=== PATIENT | female | born 1930 | race Caucasian/White ===

== ENCOUNTER → 2016-07-15 | Outpatient (CLI) | payer MEDICARE | LOC: YCHH 09:56 | PROVIDERS: ATTEND Family Medicine | DX: I10 Essential (primary) hypertension (principal); M16.11 Unilateral primary osteoarthritis, right hip ==

== ENCOUNTER → 2016-12-23 | Outpatient (CLI) | payer MEDICARE | END | disposition home or self-care (01) | LOC: YCHH 09:19 | PROVIDERS: ATTEND Family Medicine | DX: D64.9 Anemia, unspecified (principal); I10 Essential (primary) hypertension ==

== ENCOUNTER → 2017-03-14 | Outpatient (CLI) | payer MEDICARE | END | disposition home or self-care (01) | LOC: YCHH 13:44 | PROVIDERS: ATTEND Family Medicine | DX: R39.15 Urgency of urination (principal); I10 Essential (primary) hypertension; E03.9 Hypothyroidism, unspecified; D64.9 Anemia, unspecified; R30.0 Dysuria; D50.8 Other iron deficiency anemias ==

== ENCOUNTER → 2017-03-15 | Outpatient (CLI) | payer MEDICARE | END | disposition home or self-care (01) | LOC: GMAB 17:40 | PROVIDERS: ATTEND Family Medicine | DX: G30.9 Alzheimer's disease, unspecified (principal) ==

== ENCOUNTER → 2017-03-18 | Outpatient (CLI) | payer MEDICARE | END | disposition home or self-care (01) | LOC: YCHH 09:27 | PROVIDERS: ATTEND Family Medicine | DX: R06.02 Shortness of breath (principal); I10 Essential (primary) hypertension ==

== ENCOUNTER → 2017-03-21 | Outpatient (CLI) | payer MEDICARE ==
--- NOTE | 2017-03-21 23:53 | MRI ---
EXAM DATE: 03/21/2017 12:00 AM CDT. PROCEDURE: MR BRAIN WITHOUT IV CONTRAST. INDICATION: ALZHEIMERS DISEASE. COMPARISON: MRI brain 10/08/2014. TECHNIQUE: Multiplanar multisequence images of the brain were acquired without the administration of intravenous contrast. FINDINGS: No acute infarct or intracranial hemorrhage. No mass, mass effect, or midline shift. Scattered periventricular and deep white matter T2/FLAIR hyperintensities, not significantly changed from the 2015 exam compatible with chronic microvascular angiopathy. There is moderate diffuse brain volume loss with widening of the sylvian fissure and some disproportionate involvement of the temporal lobes. The hippocampi do not appear disproportionately affected. No hydrocephalus. Internal carotid and vertebrobasilar flow voids are identified. Prior left lens replacement. Unremarkable paranasal sinuses, mastoid air cells, and calvarium. IMPRESSION: Prominence of the sylvian fissure with slightly asymmetric volume loss involving the temporal lobes which may be seen with Alzheimer's disease in the correct clinical context. Findings are not significantly changed from the 2015 exam. Mild small vessel ischemic disease with moderate generalized brain volume loss. Electronically signed by: Herbert Ortega MD 03/21/2017 11:51 PM CDT
== END | disposition home or self-care (01) ==
LOC: MRI 12:58
PROVIDERS: ATTEND Family Medicine
DX: I67.82 Cerebral ischemia (principal); G30.9 Alzheimer's disease, unspecified

== ENCOUNTER 2017-03-23 09:12 | Emergency (ER) | payer MEDICARE ==
[2017-03-23 09:29] VITALS: TEMP 95.5
[2017-03-23] MEDS: SODIUM CHLORIDE 0.9% 1000ML 500 ML IVS ONE (09:39)
[2017-03-23] MEDS: ONDANSETRON ODT 8 MG TAB SL ONE (09:39)
--- NOTE | 2017-03-23 10:01 | RAD ---
EXAM DESCRIPTION: Abdomen Series CLINICAL HISTORY: 87 years Female, n/v COMPARISON: January 28, 2015 FINDINGS: The heart is at the upper limits of normal size, stable. Mural calcifications are noted in the aortic arch. There is subsegmental atelectasis or scarring the left lung base. No airspace consolidation or pleural effusion is seen. There is an old nonunited distal left clavicular fracture. There is an old healed or healing right-sided rib fracture. No free subdiaphragmatic gas or intra-abdominal air-fluid level. Nonobstructive bowel gas pattern. No suspicious intraductal calcification or mass. [id number] degenerative changes at multiple levels in the lower thoracic and lumbar spine. Postoperative changes in both hips are only partially included. IMPRESSION: Borderline cardiomegaly, but no obstruction or other acute intra-abdominal abnormality. Electronically signed by: Arthur Daniel MD 03/23/2017 10:00 AM CDT Workstation: [id number]
[2017-03-23] MEDS ORDERED: MAGNESIUM SULFATE PREMIX 2GM 50 ML IVPB ONE (10:35)
[2017-03-23] MEDS: MAGNESIUM SULFATE PREMIX 2GM 2 GM in PREMIX BAG 1 BAG IVPB ONE (10:35)
[2017-03-23] MEDS: ALUMINUM & MAGNESIUM HYDROXIDE 30 ML UD PO ONE (10:47)
[2017-03-23 13:53] VITALS: O2SAT 94
--- NOTE | 2017-03-23 14:11 | ED.PDOC ---
History of Present Illness - General Chief Complaint: GI Problem Stated Complaint: vomiting,weakness Time Seen by Provider: 03/23/17 09:23 Source: patient Exam Limitations: no limitations - History of Present Illness Initial Comments: the patient is an 87-year-old female presenting to the emergency room secondary to symptoms of generalized weakness along with nausea and vomiting. The patient started a fentanyl patch yesterday for the first time and within 4 hours was having some nausea and vomiting. Home health remove the patch this morning. She is started feeling better since the patches been removed. No fevers chills. No diarrhea. No syncope. No blood or bile in the vomitus. The patient has some advancing dementia and her family has been taking care of her she also has some chronic back pain as the reason she was taking the fentanyl. According to her family she has not been on any significant opiates in the past. Timing/Duration: unsure Severity: moderate Improving Factors: nothing Worsening Factors: medication Associated Symptoms: malaise, nausea/vomiting, weakness Allergies/Adverse Reactions: Allergies Sulfa Antibiotics Allergy (Verified 03/23/17 09:29) Home Medications: Ambulatory Orders Amlodipine Besylate [Norvasc] 10 mg PO DAILY 01/28/15 Atorvastatin Calcium [Lipitor] 10 mg PO BEDTIME 01/28/15 Hydrochlorothiazide 37.5 mg PO DAILY 01/28/15 Metoprolol Succinate [Toprol Xl] 100 mg PO DAILY 01/28/15 cloNIDine HCL [Catapres] 0.1 mg PO BID 01/28/15 Potassium Chloride [K-Tab] 10 meq PO QAM #60 tab 07/21/15 Aspirin [Enteric Coated Aspirin] 81 mg PO QAM 03/23/17 Baclofen 10 mg PO BEDTIME 03/23/17 Calcium 1,200 mg PO DAILY 03/23/17 Clonazepam 0.5 mg PO BEDTIME 03/23/17 Coenzyme Q10 (Ubidecarenone) [Coenzyme Q10] 100 mg PO DAILY 03/23/17 Cyanocobalamin [Vitamin B-12] 1,000 mcg PO DAILY 03/23/17 Diphenhydramine-Acetaminophen [Tylenol Pm Extra Strength 500-25 mg] 1 - 2 tab PO BEDTIME PRN 03/23/17 Lidocaine 5% Patch [Lidoderm Patch] 1 ea TOP BEDTIME 03/23/17 Multiple Vitamin [Multi Vitamin] 1 tab PO DAILY 03/23/17 Review of Systems - Review of Systems Constitutional: States: malaise, weakness EENTM: States: no symptoms reported Respiratory: States: no symptoms reported Cardiology: States: no symptoms reported Gastrointestinal/Abdominal: States: nausea, vomiting Genitourinary: States: no symptoms reported Musculoskeletal: States: no symptoms reported Skin: States: no symptoms reported Neurological: States: no symptoms reported - chronic advancing dementia Endocrine: States: no symptoms reported All other Systems: No Change from Baseline Past Medical History (General) - Patient Medical History Hx Seizures: No Hx Stroke: No Hx Dementia: No Hx Asthma: No Hx of COPD: Yes Hx Cardiac Disorders: Yes Hx Congestive Heart Failure: No Hx Pacemaker: No Hx Hypertension: Yes Hx Thyroid Disease: No Hx Diabetes: No Hx Gastroesophageal Reflux: No Hx Renal Disease: No Hx Cancer: No Hx of HIV: No Hx Hepatitis C: No Hx MRSA: No - Vaccination History Hx Tetanus, Diphtheria Vaccination: Yes - 01/27/15 Hx Influenza Vaccination: No Hx Pneumococcal Vaccination: Yes - Social History Hx Tobacco Use: No Hx Chewing Tobacco Use: No Hx Alcohol Use: No Hx Substance Use: No Hx Substance Use Treatment: No Hx Depression: No Hx Physical Abuse: No Hx Emotional Abuse: No Hx Suspected Abuse: No Family Medical History - Family History Mother Living Status: Hx Cardiac Disease: Yes Hx Family;Other: [place] Physical Exam - Physical Exam General Appearance: Alert, Comfortable Eye Exam: bilateral normal Ears, Nose, Throat: normal ENT inspection, normal pharynx, other - hearing is mildly decreased bilaterally Neck: full range of motion, supple Respiratory: chest non-tender, lungs clear, normal breath sounds, no respiratory distress, no accessory muscle use Cardiovascular/Chest: normal peripheral pulses, no edema, other - regular rate Peripheral Pulses: radial,right: 2+, radial,left: 2+, dorsalis pedis,right: 2+, dorsalis pedis,left: 2+ Gastrointestinal/Abdominal: non tender, soft Rectal Exam: deferred Back Exam: normal inspection, no CVA tenderness, no vertebral tenderness Extremity: normal range of motion, non-tender, normal inspection, no pedal edema , normal capillary refill Neurologic: partner II-XII nml as tested, alert, normal mood/affect, oriented x 3 Skin Exam: normal color Comments: Vital Signs - 24 hr 03/23/17 03/23/17 03/23/17 09:23 10:50 11:24 Temperature 95.5 F L Pulse Rate [ 72 75 69 Left Brachial] Respiratory 20 20 20 Rate Blood Pressure 150/75 145/86 144/68 [Left Arm] O2 Sat by Pulse 99 96 Oximetry 03/23/17 03/23/17 12:00 13:52 Temperature Pulse Rate [ 66 74 Left Brachial] Respiratory 20 20 Rate Blood Pressure 146/57 155/75 [Left Arm] O2 Sat by Pulse 93 L 94 L Oximetry Progress - Progress Progress: 03/23/17 14:12 the patient is a 87-year-old female presenting with nausea and vomiting likely related to the fentanyl patch that was started for chronic pain. She does need follow-up with her primary care doctor to find a alternative as it does not appear that she is going to tolerate this dose. She needs to keep well-hydrated. She needs to continue her home health. ER warnings were given for any worsening. The patient has received a liter of IV fluids for mild dehydration from vomiting. She should follow up with her primary care doctor early next week. - Results/Orders Results/Orders: Laboratory Tests 03/23/17 03/23/17 03/23/17 09:40 09:40 11:46 WBC 8.4 RBC 4.83 Hgb 15.2 Hct 45.7 MCV 94.7 MCH 31.4 H MCHC 33.2 RDW 13.7 Plt Count 197 MPV 8.9 Absolute Neuts (auto) 6.40 Absolute Lymphs (auto) 1.30 Absolute Monos (auto) 0.50 Absolute Eos (auto) 0.20 Absolute Basos (auto) 0.10 Neutrophils % 76.0 Lymphocytes % 15.7 L Monocytes % 5.8 Eosinophils % 1.9 Basophils % 0.6 Sodium 131 L Potassium 3.6 Chloride 93 L Carbon Dioxide 27 Anion Gap 14.6 BUN 30 H Creatinine 1.26 BUN/Creatinine Ratio 23.8 H Random Glucose 201 H Serum Osmolality 274.5 L Calcium 10.6 H Magnesium 1.4 L Total Bilirubin 1.2 H AST 33 ALT 23 Alkaline Phosphatase 38 L Creatine Kinase 89 CK-MB (CK-2) 8.1 H* CK-MB (CK-2) % Not Reportable Troponin I < 0.02 Serum Total Protein 7.0 Albumin 4.0 Globulin 3.0 Albumin/Globulin Ratio 1.3 Amylase 76 Lipase 39 Urine Color Yellow Urine Appearance Clear Urine pH 6.5 Ur Specific Wilcox 1.020 Urine Protein Negative Urine Glucose (UA) 100 H Urine Ketones Negative Urine Blood Trace-intact H Urine Nitrite Negative Urine Bilirubin Negative Urine Urobilinogen 0.2 Ur Leukocyte Esterase Small H Urine RBC 1-3 Urine WBC 1-3 Ur Epithelial Cells 1-3 Urine Bacteria 0 03/23/17 12:25 WBC RBC Hgb Hct MCV MCH MCHC RDW Plt Count MPV Absolute Neuts (auto) Absolute Lymphs (auto) Absolute Monos (auto) Absolute Eos (auto) Absolute Basos (auto) Neutrophils % Lymphocytes % Monocytes % Eosinophils % Basophils % Sodium Potassium Chloride Carbon Dioxide Anion Gap BUN Creatinine BUN/Creatinine Ratio Random Glucose Serum Osmolality Calcium Magnesium Total Bilirubin AST ALT Alkaline Phosphatase Creatine Kinase 78 CK-MB (CK-2) 7.2 H* CK-MB (CK-2) % 9.23 H Troponin I < 0.02 Serum Total Protein Albumin Globulin Albumin/Globulin Ratio Amylase Lipase Urine Color Urine Appearance Urine pH Ur Specific Wilcox Urine Protein Urine Glucose (UA) Urine Ketones Urine Blood Urine Nitrite Urine Bilirubin Urine Urobilinogen Ur Leukocyte Esterase Urine RBC Urine WBC Ur Epithelial Cells Urine Bacteria x-ray should series shows no acute pathology. Departure - Departure Clinical Impression: Medication adverse effect Qualifiers: Encounter type: initial encounter Qualified Code(s): T88.7XXA - Unspecified adverse effect of drug or medicament, initial encounter Disposition: Discharge to Home or Self Care Departure Forms: ED Discharge - Pt. Copy, Patient Portal Self Enrollment Instructions: DI for Vomiting -- Adult Diet: bland diet Activity: increase activity as tolerated Referrals: Nirav Rosado MD [Primary Care Provider] - 1-2 Weeks Home Medications: Ambulatory Orders Amlodipine Besylate [Norvasc] 10 mg PO DAILY 01/28/15 Atorvastatin Calcium [Lipitor] 10 mg PO BEDTIME 01/28/15 Hydrochlorothiazide 37.5 mg PO DAILY 01/28/15 Metoprolol Succinate [Toprol Xl] 100 mg PO DAILY 01/28/15 cloNIDine HCL [Catapres] 0.1 mg PO BID 01/28/15 Potassium Chloride [K-Tab] 10 meq PO QAM #60 tab 07/21/15 Aspirin [Enteric Coated Aspirin] 81 mg PO QAM 03/23/17 Baclofen 10 mg PO BEDTIME 03/23/17 Calcium 1,200 mg PO DAILY 03/23/17 Clonazepam 0.5 mg PO BEDTIME 03/23/17 Coenzyme Q10 (Ubidecarenone) [Coenzyme Q10] 100 mg PO DAILY 03/23/17 Cyanocobalamin [Vitamin B-12] 1,000 mcg PO DAILY 03/23/17 Diphenhydramine-Acetaminophen [Tylenol Pm Extra Strength 500-25 mg] 1 - 2 tab PO BEDTIME PRN 03/23/17 Lidocaine 5% Patch [Lidoderm Patch] 1 ea TOP BEDTIME 03/23/17 Multiple Vitamin [Multi Vitamin] 1 tab PO DAILY 03/23/17 Additional Instructions: the patient is a 87-year-old female presenting with nausea and vomiting likely related to the fentanyl patch that was started for chronic pain. She does need follow-up with her primary care doctor to find a alternative as it does not appear that she is going to tolerate this dose. She needs to keep well-hydrated. She needs to continue her home health. ER warnings were given for any worsening. The patient has received a liter of IV fluids for mild dehydration from vomiting. She should follow up with her primary care doctor early next week.
[2017-03-23 14:30] VITALS: BP 148/72
== END 2017-03-23 14:30 | disposition home or self-care (01) ==
LOC: ER 09:12
DX: R11.2 Nausea with vomiting, unspecified (principal); R53.1 Weakness; T50.905A Adverse effect of unspecified drugs, medicaments and biological substances, initial encounter; Y92.009 Unspecified place in unspecified non-institutional (private) residence as the place of occurrence of the external cause; J44.9 Chronic obstructive pulmonary disease, unspecified; I10 Essential (primary) hypertension; Z79.82 Long term (current) use of aspirin; Z79.899 Other long term (current) drug therapy
CPT/HCPCS: 36415; 74020; 80053; 81001; 82150; 82550; 82553; 83690; 83735; 84484; 85025; 87086; J3475; J7030

== ENCOUNTER 2017-03-28 18:10 | Emergency (ER) | payer MEDICARE ==
[2017-03-28] MEDS ORDERED: SODIUM CHLORIDE 0.9% 1000ML 500 ML IVS ONE (18:27)
[2017-03-28] MEDS ORDERED: HYDROcodone 5MG/APAP 325MG 1 EA TAB PO ONE (18:27)
[2017-03-28 18:35] VITALS: TEMP 98.2; O2SAT 93
[2017-03-28] MEDS ORDERED: MAGNESIUM SULFATE PREMIX 2GM 2 GM in PREMIX BAG 1 BAG IVPB ONE (19:22)
[2017-03-28] MEDS ORDERED: POTASSIUM CHLORIDE ELIXIR 20 MEQ/15 ML UD PO ONE (19:22)
[2017-03-28] MEDS ORDERED: MAGNESIUM SULFATE PREMIX 2GM 50 ML IVPB ONE (19:35)
--- NOTE | 2017-03-28 20:46 | ED.PDOC ---
History of Present Illness - General Chief Complaint: General Stated Complaint: weakness Time Seen by Provider: 03/28/17 18:23 Source: patient Exam Limitations: no limitations - History of Present Illness Initial Comments: The patient is an 87-year-old female presenting to the emergency room for the second time in the last week. She is reporting that she is not feeling good today. It is difficult to get any more specific information from her. She does have some significant dementia. She does have some hypomagnesemia. She was mildly dehydrated at her last check 5 days ago. She reports some mild abdominal cramping. She does have some chronic back pain and was on fentanyl until she got too much of that on board when she placed 2 patches at once. The patient is dysphoric. She does seem to have some significant depression along with her dementia. Timing/Duration: unsure Severity: mild Improving Factors: nothing Worsening Factors: nothing Associated Symptoms: denies symptoms Allergies/Adverse Reactions: Allergies Sulfa Antibiotics Allergy (Verified 03/23/17 09:29) Home Medications: Ambulatory Orders Amlodipine Besylate [Norvasc] 10 mg PO DAILY 01/28/15 Atorvastatin Calcium [Lipitor] 10 mg PO BEDTIME 01/28/15 Hydrochlorothiazide 37.5 mg PO DAILY 01/28/15 Metoprolol Succinate [Toprol Xl] 100 mg PO DAILY 01/28/15 cloNIDine HCL [Catapres] 0.1 mg PO BID 01/28/15 Potassium Chloride [K-Tab] 10 meq PO QAM #60 tab 07/21/15 Aspirin [Enteric Coated Aspirin] 81 mg PO QAM 03/23/17 Baclofen 10 mg PO BEDTIME 03/23/17 Calcium 1,200 mg PO DAILY 03/23/17 Clonazepam 0.5 mg PO BEDTIME 03/23/17 Coenzyme Q10 (Ubidecarenone) [Coenzyme Q10] 100 mg PO DAILY 03/23/17 Cyanocobalamin [Vitamin B-12] 1,000 mcg PO DAILY 03/23/17 Diphenhydramine-Acetaminophen [Tylenol Pm Extra Strength 500-25 mg] 1 - 2 tab PO BEDTIME PRN 03/23/17 Lidocaine 5% Patch [Lidoderm Patch] 1 ea TOP BEDTIME 03/23/17 Multiple Vitamin [Multi Vitamin] 1 tab PO DAILY 03/23/17 Famotidine 20 mg PO DAILY #14 tab 03/28/17 Magnesium Oxide 400 mg PO BID #30 cap 03/28/17 Review of Systems - Review of Systems Constitutional: States: no symptoms reported, malaise EENTM: States: no symptoms reported Respiratory: States: no symptoms reported Cardiology: States: no symptoms reported Gastrointestinal/Abdominal: States: abdominal pain, diarrhea - the patient reports this but her family is unable to verify Genitourinary: States: no symptoms reported Musculoskeletal: States: back pain, muscle pain Skin: States: no symptoms reported Neurological: States: anxiety, depressed Endocrine: States: no symptoms reported All other Systems: No Change from Baseline Past Medical History (General) - Patient Medical History Hx Seizures: No Hx Stroke: No Hx Dementia: No Hx Asthma: No Hx of COPD: Yes Hx Cardiac Disorders: Yes Hx Congestive Heart Failure: No Hx Pacemaker: No Hx Hypertension: Yes Hx Thyroid Disease: No Hx Diabetes: No Hx Gastroesophageal Reflux: No Hx Renal Disease: No Hx Cancer: No Hx of HIV: No Hx Hepatitis C: No Hx MRSA: No - Vaccination History Hx Tetanus, Diphtheria Vaccination: Yes - 01/27/15 Hx Influenza Vaccination: No Hx Pneumococcal Vaccination: Yes - Social History Hx Tobacco Use: No Hx Chewing Tobacco Use: No Hx Alcohol Use: No Hx Substance Use: No Hx Substance Use Treatment: No Hx Depression: No Hx Physical Abuse: No Hx Emotional Abuse: No Hx Suspected Abuse: No Family Medical History - Family History Mother Living Status: Hx Cardiac Disease: Yes Hx Family;Other: [place] Physical Exam - Physical Exam General Appearance: Alert, Anxious, No apparent distress - the patient goes from being called to being very worked upvery rapidly. She is not throwing up. She has not shown any evidence of pain. She tends to get upset and didn't feel that everything hurts. Eye Exam: bilateral normal Ears, Nose, Throat: hearing grossly normal, normal ENT inspection, normal pharynx Neck: non-tender, full range of motion, supple, normal inspection Respiratory: chest non-tender, lungs clear, normal breath sounds, no respiratory distress, no accessory muscle use Cardiovascular/Chest: normal peripheral pulses, no edema, other - regular rate Peripheral Pulses: radial,right: 2+, radial,left: 2+, dorsalis pedis,right: 2+, dorsalis pedis,left: 2+ Gastrointestinal/Abdominal: non tender, soft Rectal Exam: deferred Back Exam: other - he patient reports mild diffuse discomfort. No evidence of any new trauma Extremity: normal range of motion, non-tender, normal inspection, no pedal edema , normal capillary refill Neurologic: line ordering clinician II-XII nml as tested, alert, oriented x 3 - liang she becomes easily confused. She is obviously depressed. Skin Exam: normal color Comments: Vital Signs - 24 hr 03/28/17 18:30 Temperature 98.2 F Pulse Rate [ 87 left brachial] Respiratory 14 Rate Blood Pressure 170/75 [left brachial] O2 Sat by Pulse 93 L Oximetry Progress - Progress Progress: 03/28/17 20:48 the patient is an 87-year-old female presenting to the emergency room for the second time in the last week. The first visit was felt to be due to overdosing on her fentanyl patches. During this visit the patient reports significant diffuse discomfort. She is found to have mild hypokalemia and moderate hypomagnesemia and she is very mildly dehydrated. I recommended the patient discontinue her hydrochlorothiazide. This should help both the above electrolytes. additionally her muscle enzymes are elevated, and for this reason I recommend that she hold her atorvastatin. The patient does seem to have some depression and anxiety along with her chronic pain. A trial something along the lines of low-dose Cymbalta may prove beneficial for her in the long run. several of the patient's complaints coincide with ramping up of the donepezil. For now I'm recommending that that medication be held for 5 days. It can be restarted at a lower dose and the patient can be observed to see if some of the similar symptoms recur with restarting this medication. She does need follow-up with her primary care doctor towards the end of this week preferably. She will need to have her potassium and magnesium rechecked. She'll be written for magnesium oxide 400 mg by mouth daily. She is to continue her potassium supplement. The plan above has been discussed with family. ER warnings are given. - Results/Orders Results/Orders: Laboratory Tests 03/28/17 03/28/17 03/28/17 18:30 18:30 18:30 WBC 6.9 RBC 4.59 Hgb 14.4 Hct 42.8 MCV 93.2 MCH 31.3 H MCHC 33.7 RDW 13.0 Plt Count 253 MPV 8.2 Absolute Neuts (auto) 4.20 Absolute Lymphs (auto) 1.50 Absolute Monos (auto) 0.90 H Absolute Eos (auto) 0.20 Absolute Basos (auto) 0.10 Neutrophils % 61.5 Lymphocytes % 21.9 Monocytes % 12.4 H Eosinophils % 3.2 Basophils % 1.0 Sodium 133 L Potassium 3.1 L Chloride 91 L Carbon Dioxide 30 Anion Gap 15.1 BUN 25 H Creatinine 1.37 H BUN/Creatinine Ratio 18.2 Random Glucose 109 H Serum Osmolality 271.4 L Lactic Acid 1.3 Calcium 9.9 Magnesium 1.3 L Total Bilirubin 1.0 AST 36 ALT 25 Alkaline Phosphatase 38 L Creatine Kinase 235 H* CK-MB (CK-2) 5.1 H* CK-MB (CK-2) % 2.17 Troponin I 0.03 Serum Total Protein 6.7 Albumin 3.7 Globulin 3.0 Albumin/Globulin Ratio 1.2 Amylase 71 TSH 2.36 Departure - Departure Clinical Impression: Hypomagnesemia, Hypokalemia Disposition: Discharge to Home or Self Care Condition: Fair Departure Forms: ED Discharge - Pt. Copy, Patient Portal Self Enrollment Instructions: DI for Hypokalemia Diet: regular diet Activity: increase activity as tolerated Referrals: Nirav Rosado MD [Primary Care Provider] - 1-5 Days Prescriptions: Famotidine 20 mg PO DAILY #14 tab Magnesium Oxide 400 mg PO BID #30 cap Home Medications: Ambulatory Orders Amlodipine Besylate [Norvasc] 10 mg PO DAILY 01/28/15 Atorvastatin Calcium [Lipitor] 10 mg PO BEDTIME 01/28/15 Hydrochlorothiazide 37.5 mg PO DAILY 01/28/15 Metoprolol Succinate [Toprol Xl] 100 mg PO DAILY 01/28/15 cloNIDine HCL [Catapres] 0.1 mg PO BID 01/28/15 Potassium Chloride [K-Tab] 10 meq PO QAM #60 tab 07/21/15 Aspirin [Enteric Coated Aspirin] 81 mg PO QAM 03/23/17 Baclofen 10 mg PO BEDTIME 03/23/17 Calcium 1,200 mg PO DAILY 03/23/17 Clonazepam 0.5 mg PO BEDTIME 03/23/17 Coenzyme Q10 (Ubidecarenone) [Coenzyme Q10] 100 mg PO DAILY 03/23/17 Cyanocobalamin [Vitamin B-12] 1,000 mcg PO DAILY 03/23/17 Diphenhydramine-Acetaminophen [Tylenol Pm Extra Strength 500-25 mg] 1 - 2 tab PO BEDTIME PRN 03/23/17 Lidocaine 5% Patch [Lidoderm Patch] 1 ea TOP BEDTIME 03/23/17 Multiple Vitamin [Multi Vitamin] 1 tab PO DAILY 03/23/17 Famotidine 20 mg PO DAILY #14 tab 03/28/17 Magnesium Oxide 400 mg PO BID #30 cap 03/28/17 Additional Instructions: the patient is an 87-year-old female presenting to the emergency room for the second time in the last week. The first visit was felt to be due to overdosing on her fentanyl patches. During this visit the patient reports significant diffuse discomfort. She is found to have mild hypokalemia and moderate hypomagnesemia and she is very mildly dehydrated. I recommended the patient discontinue her hydrochlorothiazide. This should help both the above electrolytes. additionally her muscle enzymes are elevated, and for this reason I recommend that she hold her atorvastatin. The patient does seem to have some depression and anxiety along with her chronic pain. A trial something along the lines of low-dose Cymbalta may prove beneficial for her in the long run. several of the patient's complaints coincide with ramping up of the donepezil. For now I'm recommending that that medication be held for 5 days. It can be restarted at a lower dose and the patient can be observed to see if some of the similar symptoms recur with restarting this medication. She does need follow-up with her primary care doctor towards the end of this week preferably. She will need to have her potassium and magnesium rechecked. She'll be written for magnesium oxide 400 mg by mouth daily. She is to continue her potassium supplement. The plan above has been discussed with family. ER warnings are given.
[2017-03-28 21:26] VITALS: BP 157/64
== END 2017-03-28 21:38 | disposition home or self-care (01) ==
LOC: ER 18:10
DX: E83.42 Hypomagnesemia (principal); E87.6 Hypokalemia; I10 Essential (primary) hypertension; J44.9 Chronic obstructive pulmonary disease, unspecified; Z79.82 Long term (current) use of aspirin; Z79.899 Other long term (current) drug therapy; Z88.2 Allergy status to sulfonamides
CPT/HCPCS: 36415; 80053; 82150; 82550; 82553; 83605; 83735; 84443; 84484; 85025; 87502; J3475; J7030

== ENCOUNTER → 2017-04-12 | Outpatient (CLI) | payer MEDICARE | END | disposition home or self-care (01) | LOC: GMAB 16:34 | PROVIDERS: ATTEND Family Medicine | DX: E87.1 Hypo-osmolality and hyponatremia (principal) ==

== ENCOUNTER → 2017-06-24 | Outpatient (CLI) | payer MEDICARE | END | disposition home or self-care (01) | LOC: YCHH 10:37 | PROVIDERS: ATTEND Family Medicine | DX: D64.9 Anemia, unspecified (principal) ==

== ENCOUNTER 2017-08-09 14:35 | Inpatient (IN) | payer MEDICARE ==
--- NOTE | 2017-08-09 14:48 | HP ---
SUPERVISING PHYSICIAN: Herbert Soler M.D. CHIEF COMPLAINT: Upper respiratory infection. HISTORY OF PRESENT ILLNESS: Ms. Paredes is an 87 year-old female patient of Dr. Rosado's. She notes that she has been having some generalized weakness and some nausea for well over several weeks, but recently within the last 5 days has started having some increasing fatigue, dry cough, nasal congestion and body aches. She was taken to the minor emergency walk-in clinic in [place] and was treated for possible flu and given some IV antibiotics, IV fluids and started on Tamiflu. She went home and noted that she felt somewhat better the first day but slowly has begun to become more weak with a cough that is nonproductive at this time, but a subjective temperature. Today in the clinic she was seen by Dr. Rosado in followup and was found to have a temperature of 97.4, O2 saturation of 97% and hypotensive with blood pressure of 85/60. Laboratory studies showed that she had a normal white count of 6,400 with no obvious left shift. Chemistries noted she had low sodium at 129 with BUN 26, creatinine 1.51 and low magnesium of 1.7. Her lactic acid on admission was 1.3. Urinalysis showed dipstick being within normal limits with microscopic showing 1 to 3 RBCs, 3 to 5 WBCs, rare bacteria and a moderate amount of mucous. Dr. Rosado requested that the patient be admitted to the hospital for having failed to respond to outpatient treatment plan after an x- ray was completed that showed she had a possible left lower basilar infiltrate. The patient now is going to be admitted to the Medical/Surgical floor for ongoing further evaluation and treatment with concerns for community-acquired pneumonia secondary to possible Influenza and hypotension. PAST MEDICAL HISTORY: 1. Hyperlipidemia. 2. Hypertension. PAST SURGICAL HISTORY: 1. Appendectomy. 2. Bilateral hip replacement. 3. Right knee replacement. CURRENT MEDICATIONS: 1. Vitamin B12 1,000 mcg daily. 2. Tylenol extra strength 1 to 2 tablets at bedtime as needed. 3. Calcium 500 mg daily. 4. Magnesium oxide 400 mg b.i.d. 5. Aricept 10 mg daily at bedtime. 6. Amlodipine 10 mg daily. 7. Toprol XL 100 mg daily. 8. Potassium chloride K-Tab 10 mEq daily. 9. Clonidine 0.1 mg b.i.d. 10. Famotidine 20 mg daily. 11. Co-enzyme Q10, 100 mg daily. 12. Clonazepam 0.5 mg at bedtime. 13. Baclofen 10 mg at bedtime. 14. Lipitor 10 mg at bedtime. ALLERGIES: SULFA ANTIBIOTICS. FAMILY HISTORY: Both mother and father are , unknown cause. Noncontributory. SOCIAL HISTORY: The patient is retired. Lives at [facility]. She denies any alcohol or tobacco usage. REVIEW OF SYSTEMS: CONSTITUTIONAL: Notable for fatigue, chills and fever. CARDIOVASCULAR: Denies any chest pains, palpitations or syncopal episodes. RESPIRATORY: Worsening cough with exertional dyspnea over the last 5 days. GASTROINTESTINAL: No constipation, diarrhea but has reported some nausea without any emesis. GENITOURINARY: Denies any dysuria, hematuria or other urinary symptoms. NEUROLOGIC: Negative for any headaches, vision changes, ataxia or other neurological deficits. PHYSICAL EXAMINATION: VITAL SIGNS: On admission to the Medical/Surgical floor, showed temperature 97.7. Her initial blood pressure in the clinic showed to be 85/60. After some fluids on admission to the Medical/Surgical floor blood pressure was showing to be 138/74, respirations 20. She was satting 92% on room air at rest. Admission weight 52.1 kg. GENERAL: The patient appears to be in no acute distress but is frail and ill. She is alert. HEENT: Tympanic membranes are clear bilaterally. Oropharynx is pink and moist without any lesions. NECK: There is no jugular venous distention. Neck was supple, non-tender with full range of motion. CHEST: Notably decreased bilaterally with some diffuse expiratory wheezing and rhonchi heard in the left lower base more prominent than the right. CARDIOVASCULAR: Regular rate and rhythm without appreciable murmurs, gallops, or rubs. ABDOMEN: Soft, non-tender with positive bowel sounds. EXTREMITIES: No clubbing, cyanosis or edema. NEUROLOGIC: She was alert and oriented times three. Cranial nerves II-XII are grossly intact. There is no notable sensory or motor deficits. LABORATORY: White count on admission showed to be 6,400, hemoglobin 13.6, hematocrit 40.5, platelet count 164,000. Differential showed to be without a left shift. Chemistries show sodium 129, potassium 4.1, BUN 26, creatinine 1.51 with glucose 100. Lactic acid initially 1.3, calcium 9.5, magnesium was low at 1.7. Liver functions showed to be within normal limits. Urinalysis showed normal dipstick analysis. Microscopic showed 1 to 3 RBCs, 3 to 5 WBCs, 3 to 5 epithelials, rare bacteria and moderate amount of mucous. She had a rapid Group A Strep that was negative. Blood cultures are pending. Sputum culture pending. Flu unavailable as the hospital has no flu test available at time of admission. RADIOLOGY: Chest x-ray two view in the clinic per radiology interpretation showed subtle increased left basilar atelectasis versus airspace disease. ASSESSMENT: 1. Left lower lobe pneumonia community acquire having failed to respond to outpatient treatment plan having recently been treated for Influenza with Tamiflu, but failing to show significant improvement. 2. Electrolyte imbalance to include hyponatremia and hypomagnesemia requiring IV replacement. 3. Renal insufficiency secondary to prerenal azotemia state from dehydration from recent upper respiratory infection. 4. Weakness with nausea probably secondary to underlying upper respiratory infection with developing left lower lobe pneumonia. 5. Hypotension requiring IV fluids secondary to dehydration and underlying upper respiratory infection. 6. History of hypertension but hypotensive prior to admission. PLAN: The patient is directly admitted to the Medical/Surgical floor from Dr. Rosado's office for initiation of treatment for left lower lobe pneumonia having failed to respond to outpatient treatment plan. Will start her on aggressive pulmonary hygiene with q.i.d. DuoNeb treatments and chest percussive therapy. Will order a sputum to further target antibiotic therapy. Will start her on azithromycin and Rocephin to assist in treatment of the underlying community acquired pneumonia. She has already finished a 5 day course of Tamiflu. We are unable to test for Influenza once again as the hospital is out of stock of testing material. Will anticipate her length of stay to be 2 to 3 days. Will plan to reevaluate in the morning with repeat laboratory studies and x-ray. She will be given IV fluids in efforts to treat the hyponatremia with normal saline. Will anticipate discharge once clinically stable. Until then, continue to monitor and treat appropriately. #[id number] [facility]
[2017-08-09] MEDS ORDERED: SODIUM CHLORIDE 0.9% (FLUSH) 10 ML SYG IV PRN (15:03)
[2017-08-09] MEDS ORDERED: ALBUTEROL SULFATE 2.5 MG/3 ML VIAL NEB PRN (15:03)
[2017-08-09] MEDS ORDERED: IV SET AND CAP CHANGE INJ INJ SCH (15:30)
[2017-08-09] MEDS ORDERED: SODIUM CHL 0.9% 50ML MIN-BAG+ 50 ML IVPB ONE (15:52)
[2017-08-09] MEDS ORDERED: cefTRIAXone SODIUM 1 GM VIAL ONE (15:53)
[2017-08-09] MEDS: cefTRIAXone SODIUM 1 GM in SODIUM CHL 0.9% 50ML MIN-BAG+ 50 ML IVPB SCH ×2 (15:54→16:02)
[2017-08-09] MEDS: IPRATROPIUM/ALBUTEROL 3 ML VIAL NEB SCH ×2 (16:25→21:23)
[2017-08-09] MEDS ORDERED: MAGNESIUM SULFATE PREMIX 2GM 2 GM in PREMIX BAG 1 BAG IVPB ONE (16:40)
[2017-08-09] MEDS ORDERED: SODIUM CHLORIDE 0.9% 250ML 250 ML ONE (16:48)
[2017-08-09] MEDS ORDERED: AZITHROMYCIN IV 500 MG VIAL IVPB ONE (16:48)
[2017-08-09] MEDS ORDERED: MAGNESIUM SULFATE PREMIX 2GM 50 ML IVPB ONE (16:50)
--- NOTE | 2017-08-09 16:54 | PCM.CORE ---
Physician DVT/VTE - Nurse DVT Assessment & Total Each Risk Factor Represents 3 Points: Age over 75 years Each Risk Factor is 1 Point: Serious Lung disease (pnemonia <1month, COPD, emphysema,etc) DVT Assessment Score: 4 - 3-4 High Risk Treatments: Early Ambulation *, Sequential Compression Device Pharmacological: Enoxaparin 40 mg SQ Daily
[2017-08-09] MEDS: AZITHROMYCIN IV 500 MG in SODIUM CHLORIDE 0.9% 250ML 250 ML IVPB SCH (17:26)
[2017-08-09] MEDS: ENOXAPARIN SODIUM 30 MG/0.3 ML SYG SUBCU SCH (17:33)
[2017-08-09] MEDS ORDERED: MAGNESIUM OXIDE 400 MG TAB ONE (20:27)
[2017-08-09] MEDS ORDERED: DONEPEZIL HCL 5 MG TAB ONE (20:28)
[2017-08-09] MEDS: cloNIDine HCL 0.1 MG TAB PO SCH (20:40)
[2017-08-09] MEDS: KCL 20 MEQ/NS 1,000 ML IVS PRN (20:41)
[2017-08-09] MEDS: SODIUM CHLORIDE 0.9% (FLUSH) 10 ML SYG IV SCH (20:43)
[2017-08-09] MEDS ORDERED: ENOXAPARIN SODIUM 40 MG/0.4 ML SYG SUBCU SCH (21:00)
[2017-08-09] MEDS ORDERED: NON-FORMULARY MEDICATION 1 EA MIS (Donepezil Hydrochloride [Aricept] 10 MG) PO SCH (21:00)
[2017-08-09] MEDS ORDERED: MAGNESIUM OXIDE 400 MG PO SCH (21:00)
[2017-08-10] MEDS ORDERED: PANTOPRAZOLE SODIUM IV 40 MG VIAL ONE (02:46)
[2017-08-10] MEDS ORDERED: SODIUM CHL 0.9% 50ML MIN-BAG+ 50 ML IVPB ONE ×2 (02:46→15:07)
[2017-08-10] MEDS ORDERED: cefTRIAXone SODIUM 1 GM VIAL ONE ×2 (02:46→15:07)
[2017-08-10] MEDS: cefTRIAXone SODIUM 1 GM in SODIUM CHL 0.9% 50ML MIN-BAG+ 50 ML IVPB SCH ×2 (04:24→16:19)
[2017-08-10] MEDS: PANTOPRAZOLE SODIUM IV 40 MG VIAL IV SCH (06:22)
--- NOTE | 2017-08-10 07:19 | RAD ---
Portable chest INDICATION: Pneumonia COMPARISON: January 28, 2015 IMPRESSION: Heart size within normal limits for technique. Degenerative scoliosis thoracolumbar. Remote displaced fracture right posterior upper rib. Prominent interstitial markings in the left lung base. No lobar consolidation. Apparent annular valve calcification centrally over the heart. Vague opacity near the cardiac apex possibly pericardial fat or pleural. Recommend upright PA and lateral films when possible nonemergent. No large pleural effusion or pneumothorax. Electronically signed by: Denis Hampton MD 08/10/2017 7:18 AM FACE WORKER
[2017-08-10] MEDS: POTASSIUM CHLORIDE 10 MEQ TAB PO SCH (08:31)
[2017-08-10] MEDS: ASPIRIN (CHEWABLE) 81 MG TAB PO SCH (08:31)
[2017-08-10] MEDS: cloNIDine HCL 0.1 MG TAB PO SCH ×2 (08:31→21:01)
[2017-08-10] MEDS: CYANOCOBALAMIN 1,000 MCG TAB PO SCH (08:31)
[2017-08-10] MEDS: CALCIUM CARBONATE-VITAMIN D 500 MG TAB PO SCH (08:31)
[2017-08-10] MEDS: MAGNESIUM OXIDE 400 MG TAB PO SCH ×2 (08:31→21:01)
[2017-08-10] MEDS: amLODIPine BESYLATE 5 MG TAB PO SCH (08:31)
[2017-08-10] MEDS: METOPROLOL SUCCINATE XL 100 MG TAB PO SCH (08:32)
[2017-08-10] MEDS: SODIUM CHLORIDE 0.9% (FLUSH) 10 ML SYG IV SCH ×2 (08:32→21:01)
[2017-08-10] MEDS: IPRATROPIUM/ALBUTEROL 3 ML VIAL NEB SCH ×4 (09:10→20:17)
--- NOTE | 2017-08-10 11:38 | US ---
EXAM DESCRIPTION: Venous,Lower Extremity LT (accession [id number]), Venous,Lower Extremity RT (accession [id number]): ULTRASOUND. CLINICAL HISTORY: leg pain; hx DVT COMPARISON: Duplex ultrasound evaluation of the left lower extremity deep venous system 12/26/2015. TECHNIQUE: Two -dimensional and doppler sonographic evaluation of the deep venous system of the right lower extremity. FINDINGS: Doppler evaluation shows normal color flow and normal phasicity and augmentation of the right common femoral vein, femoral vein, popliteal vein, greater saphenous vein, peroneal, and posterior tibial vein. The right lower extremity deep veins showed normal occlusion with transducer pressure. Two-dimensional survey showed no echogenic thrombus within these veins. TECHNIQUE: Two -dimensional and doppler sonographic evaluation of the deep venous system of the left lower extremity. FINDINGS: Doppler evaluation shows normal color flow and normal phasicity and augmentation of the left common femoral vein, femoral vein, popliteal vein, greater saphenous vein, peroneal, and posterior tibial vein. The left lower extremity deep veins showed normal occlusion with transducer pressure. Two-dimensional survey showed no echogenic thrombus within these veins. IMPRESSION: 1. Duplex ultrasound evaluation of the bilateral lower extremity deep venous system showing no evidence of thrombosis or embolism. 2. No solid or cystic masses, parenchymal edema in either lower extremity. Electronically signed by: Olman Dodge MD 08/10/2017 11:37 AM PRODUCTION LINE TECHNICIAN
--- NOTE | 2017-08-10 11:38 | US ---
EXAM DESCRIPTION: Venous,Lower Extremity LT (accession [id number]), Venous,Lower Extremity RT (accession [id number]): ULTRASOUND. CLINICAL HISTORY: leg pain; hx DVT COMPARISON: Duplex ultrasound evaluation of the left lower extremity deep venous system 12/26/2015. TECHNIQUE: Two -dimensional and doppler sonographic evaluation of the deep venous system of the right lower extremity. FINDINGS: Doppler evaluation shows normal color flow and normal phasicity and augmentation of the right common femoral vein, femoral vein, popliteal vein, greater saphenous vein, peroneal, and posterior tibial vein. The right lower extremity deep veins showed normal occlusion with transducer pressure. Two-dimensional survey showed no echogenic thrombus within these veins. TECHNIQUE: Two -dimensional and doppler sonographic evaluation of the deep venous system of the left lower extremity. FINDINGS: Doppler evaluation shows normal color flow and normal phasicity and augmentation of the left common femoral vein, femoral vein, popliteal vein, greater saphenous vein, peroneal, and posterior tibial vein. The left lower extremity deep veins showed normal occlusion with transducer pressure. Two-dimensional survey showed no echogenic thrombus within these veins. IMPRESSION: 1. Duplex ultrasound evaluation of the bilateral lower extremity deep venous system showing no evidence of thrombosis or embolism. 2. No solid or cystic masses, parenchymal edema in either lower extremity. Electronically signed by: Olman Dodge MD 08/10/2017 11:37 AM RETURNED GOODS RECEIVING CLERK
[2017-08-10] MEDS: KCL 20 MEQ/NS 1,000 ML IVS PRN (12:09)
[2017-08-10] MEDS ORDERED: AZITHROMYCIN IV 500 MG VIAL IVPB ONE (15:07)
[2017-08-10] MEDS ORDERED: SODIUM CHLORIDE 0.9% 250ML 250 ML ONE (15:07)
[2017-08-10] MEDS: ENOXAPARIN SODIUM 30 MG/0.3 ML SYG SUBCU SCH (16:53)
[2017-08-10] MEDS: AZITHROMYCIN IV 500 MG in SODIUM CHLORIDE 0.9% 250ML 250 ML IVPB SCH (16:53)
[2017-08-10] MEDS ORDERED: diphenhydrAMINE HCL 50 MG/ML VIAL IV ONE (20:39)
[2017-08-10] MEDS ORDERED: HALOPERIDOL LACTATE INJ 5 MG/ML VIAL IM ONE (20:39)
[2017-08-10] MEDS: DONEPEZIL HCL 5 MG TAB PO SCH (21:01)
--- NOTE | 2017-08-10 21:19 | PN ---
DATE: 08/10/17 SUPERVISING PHYSICIAN: Herbert Soler M.D. SUBJECTIVE: The patient is sitting up in her bed. She complains of bilateral lower leg pain. She actually has a muscle spasm in her right calf. Other than that she complains of fatigue and just being very tired. She denies any chest pain or shortness of breath. OBJECTIVE: VITAL SIGNS: She is afebrile, heart rate 98, blood pressure 138/73, respiratory rate 20, O2 sat is 91% on room air. RESPIRATORY: Diminished breath sounds bilaterally with a few scattered rhonchi. No crackles or wheezing noted. CARDIAC: Regular rate and rhythm. GASTROINTESTINAL: Abdomen is soft, nondistended. Bowel sounds are positive. EXTREMITIES: No cyanosis, clubbing or edema. NEUROLOGIC: She is awake and alert. She is oriented to person and place. She has some mild confusion but reorients fairly easily, although she is quite confused as when she came into the hospital. LABORATORY: WBCs are 6.5, hemoglobin 13.2, hematocrit 9.3. Sodium has improved to 135 with potassium 4, chloride 98, BUN 22, creatinine has normalized to 1.08. Magnesium 1.8. Preliminary Strep throat culture is negative at this time. Preliminary blood cultures are negative. RADIOLOGY: Chest x-ray per radiology interpretation shows heart size is within normal limits with degenerative scoliosis thoracolumbar, remote displaced fracture of the right posterior upper rib, prominent interstitial markings in the left lung base with no lobar consolidation. Apparent annular valve calcification centrally over the heart. Bilateral lower extremity ultrasounds per radiology interpretation show no evidence of thrombus or embolism. All other labs and films have been reviewed via the EMR. ASSESSMENT: 1. Left lower lobe pneumonia community acquired having failed to respond to outpatient treatment plan having recently been treated for Influenza with Tamiflu, but failing to show significant improvement. 2. Electrolyte imbalance to include hyponatremia and hypomagnesemia that has improved. 3. Renal insufficiency. 4. Weakness with nausea probably secondary to underlying upper respiratory infection. 5. Hypotension requiring IV fluids secondary to dehydration and underlying infection, improved. 6. History of hypertension with some hypotension on admission most likely due to dehydration and underlying infection. PLAN: We will continue present supportive care. I have discontinued her IV fluids for now as she is taking p.o. without any problems. I will repeat labs in the morning as well as PA and lateral chest x-ray as recommended by Radiology. We will continue with good pulmonary hygiene and hopefully she can be discharged in the next day or two. Dr. Soler is the collaborating physician available for consultation. [facility][id number] [facility]
[2017-08-11] MEDS ORDERED: SODIUM CHL 0.9% 50ML MIN-BAG+ 50 ML IVPB ONE ×3 (04:03→19:48)
[2017-08-11] MEDS ORDERED: cefTRIAXone SODIUM 1 GM VIAL ONE ×3 (04:03→19:49)
[2017-08-11] MEDS: cefTRIAXone SODIUM 1 GM in SODIUM CHL 0.9% 50ML MIN-BAG+ 50 ML IVPB SCH ×2 (04:22→15:30)
[2017-08-11] MEDS: PANTOPRAZOLE SODIUM IV 40 MG VIAL IV SCH (05:59)
--- NOTE | 2017-08-11 07:05 | RAD ---
EXAM: Single view chest. INDICATION: Pneumonia. COMPARISON: Chest x-ray: 08/10/2017. FINDINGS: There is a left basilar airspace opacity. The heart size is stable with dense calcifications of the mitral valve. There is no pneumothorax. A small left pleural effusion may be present. Old healed right-sided rib fractures noted IMPRESSION: Left basilar airspace opacity, which may represent atelectasis or pneumonia Electronically signed by: Garcia Gonsalez MD 08/11/2017 7:04 AM REPAIRER GENERAL Workstation: [id number]
[2017-08-11] MEDS: IPRATROPIUM/ALBUTEROL 3 ML VIAL NEB SCH (07:30)
[2017-08-11] MEDS: POTASSIUM CHLORIDE 10 MEQ TAB PO SCH (07:52)
[2017-08-11] MEDS: METOPROLOL SUCCINATE XL 100 MG TAB PO SCH ×2 (07:59→08:03)
[2017-08-11] MEDS: amLODIPine BESYLATE 5 MG TAB PO SCH ×2 (07:59→08:02)
[2017-08-11] MEDS: CYANOCOBALAMIN 1,000 MCG TAB PO SCH ×2 (07:59→08:02)
[2017-08-11] MEDS: MAGNESIUM OXIDE 400 MG TAB PO SCH ×2 (08:00→20:27)
[2017-08-11] MEDS: CALCIUM CARBONATE-VITAMIN D 500 MG TAB PO SCH (08:00)
[2017-08-11] MEDS: ASPIRIN (CHEWABLE) 81 MG TAB PO SCH (08:00)
[2017-08-11] MEDS: SODIUM CHLORIDE 0.9% (FLUSH) 10 ML SYG IV SCH ×2 (08:00→20:28)
[2017-08-11] MEDS: cloNIDine HCL 0.1 MG TAB PO SCH ×2 (08:00→22:30)
[2017-08-11] MEDS ORDERED: diphenhydrAMINE HCL 50 MG/ML VIAL ONE (08:57)
[2017-08-11] MEDS: HALOPERIDOL LACTATE INJ 5 MG/ML VIAL IM PRN ×2 (08:58→15:47)
[2017-08-11] MEDS ORDERED: HALOPERIDOL LACTATE INJ 5 MG/ML VIAL IM ONE (08:58)
[2017-08-11] MEDS: diphenhydrAMINE HCL 50 MG/ML VIAL IV PRN ×2 (08:58→15:30)
[2017-08-11] MEDS ORDERED: IPRATROPIUM/ALBUTEROL 3 ML VIAL NEB PRN (10:00)
[2017-08-11] MEDS ORDERED: cloNIDine HCL 0.1 MG TAB PO ONE (14:46)
[2017-08-11] MEDS ORDERED: POTASSIUM CHLORIDE 20 MEQ TAB PO ONE (14:53)
--- NOTE | 2017-08-11 15:55 | PN ---
DATE: 08/11/17 SUPERVISING PHYSICIAN: Herbert Soler M.D. SUBJECTIVE: The patient is sitting up in her bed. She is less confused than yesterday but continues to get her stories confused and where she is. It was reported she slipped out of bed last night because she tried to get up, but there were no injuries and there was no actual fall, it was more she slid to the ground. She does not remember any of that. There was no head injury or loss of consciousness. OBJECTIVE: VITAL SIGNS: She is afebrile, heart rate 88, blood pressure 178/77, respiratory rate 20, O2 sat is 95% on room air. RESPIRATORY: Essentially clear to auscultation bilaterally. CARDIAC: Regular rate, slightly irregular rhythm. GASTROINTESTINAL: Abdomen is soft, nondistended, non-tender. Bowel sounds are positive. NEUROLOGIC: She is awake, alert and oriented times three. LABORATORY: WBCs are 9.8, hemoglobin 14.3, hematocrit 42.6 with neutrophils 82.2. Sodium is slightly low at 133 with potassium 3.4, chloride 94, BUN 15, creatinine 0.88, magnesium 1.8, calcium 9.2. Preliminary sputum culture shows no saadia at 24 hours. Preliminary blood culture showed no growth at 24 hours. RADIOLOGY: Chest x-ray per radiology interpretation shows left basilar airspace opacity which may represent atelectasis or pneumonia. All other labs and films have been reviewed via the EMR. ASSESSMENT: 1. Left lower lobe pneumonia community acquired having failed to respond to outpatient treatment plan having recently been treated for Influenza with Tamiflu, but failing to show significant improvement. 2. Electrolyte imbalance to include hyponatremia and hypomagnesemia that has improved, but today has mild hypokalemia. 3. Renal insufficiency that has improved. 4. Weakness with nausea probably secondary to underlying upper respiratory infection. 5. Hypotension on admission that has now normalized. In fact, the patient is slightly hypertensive. 6. Hypertension. PLAN: We will continue present supportive care. The patient is a resident of [place] and because of her confusion it may not be advisable to discharge her to [place]. Her confusion may be related to the underlying infectious process , but I believe there may be a history of mild dementia. We will get in touch with family and decide what is best for discharge planning. I have given her some supplemental potassium as well as ordered physical therapy to make sure she is safe to be discharged. I will repeat her lab tomorrow. Will continue to monitor her closely and follow as needed. Dr. Soler is the collaborating physician available for consultation. #[id number] [facility]
[2017-08-11] MEDS ORDERED: SODIUM CHLORIDE 0.9% 250ML 250 ML ONE (16:36)
[2017-08-11] MEDS ORDERED: AZITHROMYCIN IV 500 MG VIAL IVPB ONE (16:36)
[2017-08-11] MEDS: AZITHROMYCIN IV 500 MG in SODIUM CHLORIDE 0.9% 250ML 250 ML IVPB SCH (16:39)
[2017-08-11] MEDS: ENOXAPARIN SODIUM 30 MG/0.3 ML SYG SUBCU SCH (16:39)
[2017-08-11] MEDS: ACETAMINOPHEN 325 MG TAB PO PRN (18:05)
[2017-08-11] MEDS ORDERED: cloNIDine HCL 0.1 MG TAB ONE (19:48)
[2017-08-11] MEDS: DONEPEZIL HCL 5 MG TAB PO SCH (20:27)
[2017-08-12] MEDS: cefTRIAXone SODIUM 1 GM in SODIUM CHL 0.9% 50ML MIN-BAG+ 50 ML IVPB SCH (04:25)
[2017-08-12] MEDS: PANTOPRAZOLE SODIUM IV 40 MG VIAL IV SCH (06:00)
[2017-08-12] MEDS: POTASSIUM CHLORIDE 10 MEQ TAB PO SCH (07:40)
[2017-08-12] MEDS: METOPROLOL SUCCINATE XL 100 MG TAB PO SCH (09:01)
[2017-08-12] MEDS: CALCIUM CARBONATE-VITAMIN D 500 MG TAB PO SCH (09:01)
[2017-08-12] MEDS: ASPIRIN (CHEWABLE) 81 MG TAB PO SCH (09:01)
[2017-08-12] MEDS: MAGNESIUM OXIDE 400 MG TAB PO SCH (09:01)
[2017-08-12] MEDS: CYANOCOBALAMIN 1,000 MCG TAB PO SCH (09:01)
[2017-08-12] MEDS: amLODIPine BESYLATE 5 MG TAB PO SCH (09:02)
[2017-08-12] MEDS: cloNIDine HCL 0.1 MG TAB PO SCH (09:02)
[2017-08-12] MEDS: SODIUM CHLORIDE 0.9% (FLUSH) 10 ML SYG IV SCH (09:02)
[2017-08-12] MEDS: ACETAMINOPHEN 325 MG TAB PO PRN (09:10)
--- NOTE | 2017-08-12 09:13 | RAD ---
EXAM DESCRIPTION: Hip,Right 2 Views CLINICAL HISTORY: pain COMPARISON: July 20, 2015 IMPRESSION: 2 views of the right hip show interval dislocation of the femoral component from the acetabular component of the total hip plasty. The femur is displaced superior and lateral to the right acetabulum. No obvious fracture is identified. Osseous structures are diffusely osteopenic. Calcification in the soft tissue lateral to the right proximal femur could represent heterotopic ossification. Electronically signed by: Jun Henry MD 08/12/2017 9:12 AM [facility]
[2017-08-12] MEDS ORDERED: FLUCONAZOLE IV 100 ML IVPB ONE (09:56)
[2017-08-12] MEDS ORDERED: FLUCONAZOLE IV 200 MG in PREMIX BAG 1 BAG IVPB SCH (10:00)
[2017-08-12 11:20] VITALS: BP 144/66; TEMP 99.2; O2SAT 93
--- NOTE | 2017-08-12 14:23 | DS ---
SUPERVISING PHYSICIAN: Herbert Soler MD DISCHARGE DIAGNOSIS: 1. Left lower lobe pneumonia, community acquired, having failed to respond to outpatient treatment plan and was recently treated for Influenza with Tamiflu, which has been completed. 2. Right hip displacement. 3. Electrolyte imbalance on admission, improved. 4. Renal insufficiency, improved. 5. Weakness with nausea, probably secondary to underlying upper respiratory infection, improved. 6. Altered mental status on admission, improved with fluids, antibiotics and treatments. 7. Hypertension. HISTORY OF PRESENT ILLNESS: This is an 87-year-old female patient who is a resident of [place]. She is a patient of Dr. Rosado's. She had some generalized weakness and some nausea for well over several weeks, but within the previous 5 days had started having some increasing fatigue, dry cough, nasal congestion and body aches. She was taken to the minor emergency walk-in clinic in [place] and was treated for possible flu and given some IV antibiotics. She went home and noted that she felt somewhat better the first day, but slowly began to become more weak with a cough and a subjective temperature. She was seen by Dr. Rosado in followup and was found to have a temperature of 97.4, O2 saturation of 97% and hypotensive with blood pressure of 85/60. White count was 6,400, low sodium at 129 with BUN 26, creatinine 1.54. Magnesium low at 1.7. Her lactic acid on admission was 1.3. Urinalysis was within normal limits. She was admitted for having failed to respond to outpatient treatment after an x-ray was completed that showed she had a possible left lower basilar infiltrate. HOSPITAL COURSE: She was admitted to the hospital and placed on Rocephin and azithromycin. Sputum culture was obtained as well as blood cultures. She did have some acute mental status changes that were most likely related to her infection. She had to be treated with Haldol and Benadryl several times due to the confusion, but she has improved over the last 24 to 36 hours. She has not required any Haldol or Benadryl in about 48 hours. This morning, nursing went in to turn the patient and she yelled out in pain and complained of pain over the right lateral hip area. An x-ray was obtained and she was found to have a right hip displacement. She has had a previous right hip replacement as well as several displacements since her right total hip surgery. I called her primary care physician, Dr. Rosado, who was in touch with her son, Dr. Justin Paredes , who is an orthopedic surgeon in the [facility]. We will be transferring her to [facility] in [place]. Dr. Crispin Pressley is the accepting surgeon at that facility. DISCHARGE PLAN: The patient will be discharged to [facility] in stable condition. Dr. Crispin Pressley will be doing the surgical intervention. She is to resume her previous medications. Her last injection of Lovenox was given at 16:39 on 08/11/17. It was 30 mg. The only changes in her home medications are her clonidine has been increased to 0.1 mg t.i.d. She is recommended to continue her Rocephin and azithromycin. I just added Diflucan this morning due to yeast in her sputum. She will need to followup with Dr. Rosado within 2 weeks of discharge. She is to be transported to [place] in an ambulance. Vital signs are stable. DISCHARGE MEDICATIONS: 1. Metoprolol. 2. Amlodipine. 3. Potassium chloride. 4. Calcium. 5. Diphenhydramine. 6. Vitamin B12. 7. Famotidine. 8. Magnesium oxide. 9. Donepezil. 10. Aspirin. 11. Tramadol. 12. Acetaminophen. 13. Clonidine. Her medications to be discharged with are azithromycin, ceftriaxone and fluconazole. Dr. Soler is the collaborating physician and available for consultation. #[id number] [facility]
== END 2017-08-12 13:48 | disposition short-term general hospital (02) | DRG 178 ==
LOC: MS 14:35
PROVIDERS: ADMIT Nurse Practitioner Family; ATTEND Nurse Practitioner Acute Care
DX: B37.1 Pulmonary candidiasis (principal); E87.1 Hypo-osmolality and hyponatremia; T84.020A Dislocation of internal right hip prosthesis, initial encounter; B37.89 Other sites of candidiasis; E83.42 Hypomagnesemia; E86.0 Dehydration; R79.89 Other specified abnormal findings of blood chemistry; R53.1 Weakness; R11.0 Nausea; I95.9 Hypotension, unspecified; E78.5 Hyperlipidemia, unspecified; I10 Essential (primary) hypertension; Z96.643 Presence of artificial hip joint, bilateral; Z96.651 Presence of right artificial knee joint; Y92.230 Patient room in hospital as the place of occurrence of the external cause; R41.0 Disorientation, unspecified; E87.6 Hypokalemia; M62.831 Muscle spasm of calf; Z88.2 Allergy status to sulfonamides; Z79.899 Other long term (current) drug therapy; Z86.19 Personal history of other infectious and parasitic diseases

== ENCOUNTER 2017-09-29 20:50 | Observation (INO) | payer MEDICARE ==
--- NOTE | 2017-09-29 21:15 | ED.PDOC ---
History of Present Illness - General Chief Complaint: General Stated Complaint: right leg swelling, poss DVT Time Seen by Provider: 09/29/17 21:08 Source: patient, family Exam Limitations: no limitations Additional Information: RAMSES LE EDEMA. RECENTLY HAD R HIP ARTHROPLASTY, HAD NEG US APPROX 1 WEEK AGO BUT HAS HAD PROGRESSIVE SWELLING SINCE. NO CP SOB, CONCERNED SHE MAY HAVE DVT. - History of Present Illness Timing/Duration: other - 2 WEEKS Severity: moderate Improving Factors: nothing Worsening Factors: other - DEPENDANT POSITION Associated Symptoms: denies symptoms Allergies/Adverse Reactions: Allergies Sulfa Antibiotics Allergy (Verified 09/29/17 21:23) Home Medications: Ambulatory Orders Amlodipine Besylate [Norvasc] 10 mg PO DAILY 01/28/15 Metoprolol Succinate [Toprol Xl] 100 mg PO DAILY 01/28/15 Potassium Chloride [K-Tab] 10 meq PO QAM #60 tab 07/21/15 Calcium 500 mg PO DAILY 03/23/17 Cyanocobalamin [Vitamin B-12] 1,000 mcg PO DAILY 03/23/17 Diphenhydramine-Acetaminophen [Tylenol Pm Extra Strength 500-25 mg] 1 - 2 tab PO BEDTIME PRN 03/23/17 Famotidine 20 mg PO DAILY #14 tab 03/28/17 Magnesium Oxide 400 mg PO BID #30 cap 03/28/17 Acetaminophen [Tylenol] 500 mg PO Q6HR PRN 08/09/17 Aspirin [Aspirin Adult Low Dose] 81 mg PO DAILY 08/09/17 Donepezil Hydrochloride [Aricept] 10 mg PO BEDTIME 08/09/17 Tramadol HCl 50 mg PO BID 08/09/17 Tramadol HCl 50 mg PO Q6HR PRN 08/09/17 Azithromycin IV [Zithromax IV] 500 mg IV Q24HR #2 vial 08/12/17 Fluconazole IV [Diflucan] 200 mg IVPB DAILY #6 bag 08/12/17 cefTRIAXone SODIUM [Rocephin] 0 gm IV DAILY #7 vial 08/12/17 cloNIDine HCL [Catapres] 0.1 mg PO TID tab 08/12/17 Review of Systems - Review of Systems Constitutional: Denies: chills, fever EENTM: States: no symptoms reported Respiratory: Denies: cough, short of breath, wheezing Cardiology: Denies: chest pain, palpitations, syncope Gastrointestinal/Abdominal: Denies: diarrhea, nausea, vomiting Genitourinary: States: no symptoms reported Musculoskeletal: States: no symptoms reported Skin: States: no symptoms reported, other - NO REDNESS OR SWELLING Neurological: States: no symptoms reported Endocrine: States: no symptoms reported Hematologic/Lymphatic: States: no symptoms reported Past Medical History (General) - Patient Medical History Hx Seizures: No Hx Stroke: No Hx Dementia: No Hx Asthma: No Hx of COPD: Yes Hx Cardiac Disorders: Yes Hx Congestive Heart Failure: No Hx Pacemaker: No Hx Hypertension: Yes Hx Thyroid Disease: No Hx Diabetes: No Hx Gastroesophageal Reflux: No Hx Renal Disease: No Hx Cancer: No Hx of HIV: No Hx Hepatitis C: No Hx MRSA: No - Vaccination History Hx Tetanus, Diphtheria Vaccination: Yes - 01/27/15 Hx Influenza Vaccination: No Hx Pneumococcal Vaccination: Yes - Social History Hx Tobacco Use: No Hx Chewing Tobacco Use: No Hx Alcohol Use: No Hx Substance Use: No Hx Substance Use Treatment: No Hx Depression: No Hx Physical Abuse: No Hx Emotional Abuse: No Hx Suspected Abuse: No Family Medical History - Family History Mother Living Status: Hx Cardiac Disease: Yes Hx Family;Other: [place] Physical Exam - Physical Exam General Appearance: Alert, No apparent distress Eye Exam: bilateral normal Ears, Nose, Throat: hearing grossly normal, normal ENT inspection Neck: non-tender, full range of motion, supple Respiratory: lungs clear, normal breath sounds Cardiovascular/Chest: regular rate, rhythm, no murmur Gastrointestinal/Abdominal: normal bowel sounds, non tender, soft, no organomegaly Back Exam: normal inspection, no CVA tenderness, no vertebral tenderness Extremity: normal range of motion, other - 1+ PITTING EDEMA LE'S, NVI, NO UNILATERAL EDEMA, NO KEISHA'S. Neurologic: no motor/sensory deficits, alert, normal mood/affect Skin Exam: normal color, warm/dry, other - NO ERYTHEMA Lymphatic: no adenopathy Progress - Progress Progress: 09/29/17 22:37 NO SOB, NO COUGH, - EKG/XRAY/CT XRAY: chest - CARDIOMEGALY, Departure - Departure Clinical Impression: Peripheral edema, Dehydration, Acute kidney injury (nontraumatic) Time of Disposition: 22:40 - D/W ZEUS, WILL ADMIT Disposition: Admit Patient Condition: Fair Departure Forms: ED Discharge - Pt. Copy, Patient Portal Self Enrollment Referrals: Nirav Rosado MD [Primary Care Provider] - 1-2 Weeks Home Medications: Ambulatory Orders Amlodipine Besylate [Norvasc] 10 mg PO DAILY 01/28/15 Metoprolol Succinate [Toprol Xl] 100 mg PO DAILY 01/28/15 Potassium Chloride [K-Tab] 10 meq PO QAM #60 tab 07/21/15 Calcium 500 mg PO DAILY 03/23/17 Cyanocobalamin [Vitamin B-12] 1,000 mcg PO DAILY 03/23/17 Diphenhydramine-Acetaminophen [Tylenol Pm Extra Strength 500-25 mg] 1 - 2 tab PO BEDTIME PRN 03/23/17 Famotidine 20 mg PO DAILY #14 tab 03/28/17 Magnesium Oxide 400 mg PO BID #30 cap 03/28/17 Acetaminophen [Tylenol] 500 mg PO Q6HR PRN 08/09/17 Aspirin [Aspirin Adult Low Dose] 81 mg PO DAILY 08/09/17 Donepezil Hydrochloride [Aricept] 10 mg PO BEDTIME 08/09/17 Tramadol HCl 50 mg PO BID 08/09/17 Tramadol HCl 50 mg PO Q6HR PRN 08/09/17 Azithromycin IV [Zithromax IV] 500 mg IV Q24HR #2 vial 08/12/17 Fluconazole IV [Diflucan] 200 mg IVPB DAILY #6 bag 08/12/17 cefTRIAXone SODIUM [Rocephin] 0 gm IV DAILY #7 vial 08/12/17 cloNIDine HCL [Catapres] 0.1 mg PO TID tab 08/12/17 Decision To Admit - Decistion To Admit Decision to Admit Reason: Admit from ER Decision to Admit Date: 09/29/17 Decision to Admit Time: 22:39
--- NOTE | 2017-09-29 22:04 | RAD ---
EXAM DESCRIPTION: Chest,1 View CLINICAL HISTORY: RAMSES LE EDEMA, COMPARISON: 08/11/2017 FINDINGS: Single frontal view of the chest. Cardiomegaly. Atherosclerotic calcification and tortuosity of the thoracic aorta. Chronic appearing interstitial opacities are stable from comparison study. No pneumothorax or definite pleural effusion. No definite airspace consolidation. Biapical pleural parenchymal scarring. Remote posterior right sixth rib fracture. No definite acute osseous abnormalities. Upper abdominal soft tissues are unremarkable. IMPRESSION: 1. No acute pneumonic process. Cardiomegaly. Electronically signed by: Charles Klein 09/29/2017 10:02 PM CDT
--- NOTE | 2017-09-29 22:06 | US ---
EXAM DESCRIPTION: Venous,Lower Extremity RT CLINICAL HISTORY: edema to right leg post hip surgery COMPARISON: 08/10/2017 TECHNIQUE: Grayscale, color Doppler, and spectral Doppler imaging of the right lower extremity venous system. FINDINGS: Normal compressibility and flow identified in the right common femoral, superficial femoral, popliteal, and proximal calf veins. No echogenic thrombus identified. Edema in the subcutaneous soft tissues of the calf. Cardiac phasicity in the common femoral veins. IMPRESSION: No evidence of right lower extremity DVT. Electronically signed by: Charles Klein 09/29/2017 10:04 PM CDT
[2017-09-30] MEDS ORDERED: SODIUM CHLORIDE 0.9% (FLUSH) 10 ML SYG IV PRN (00:17)
[2017-09-30] MEDS ORDERED: SODIUM CHLORIDE 0.9% 1000ML 1,000 ML IVS PRN (00:19)
[2017-09-30] MEDS ORDERED: IV SET AND CAP CHANGE INJ INJ SCH (00:30)
[2017-09-30] MEDS ORDERED: PANTOPRAZOLE SODIUM IV 40 MG VIAL IV SCH (00:30)
[2017-09-30] MEDS ORDERED: ACETAMINOPHEN 500 MG TAB PO ONE (08:55)
[2017-09-30] MEDS ORDERED: SODIUM CHLORIDE 0.9% (FLUSH) 10 ML SYG IV SCH ×2 (09:00→21:00)
[2017-09-30 09:53] VITALS: O2SAT 98
[2017-09-30 10:20] VITALS: BP 121/53; TEMP 97.8
--- NOTE | 2017-09-30 13:29 | SSS ---
SUPERVISING PHYSICIAN: Alvino Miller MD DISCHARGE DIAGNOSES: 1. Acute on chronic renal failure. 2. Hyperkalemia. 3. Elevated BNP of 744 with no history of congestive heart failure. 4. Right lower extremity swelling with negative venous Doppler. HISTORY OF PRESENT ILLNESS: This is an 87-year-old female patient who presented to the Emergency Room on the date of admission due to right lower extremity swelling for about one week. There were no complaints of chest pain, shortness of breath. She had recently had right hip surgery and was worried that she may have a DVT. In the Emergency Room, her WBCs were normal at 8.5 with hemoglobin 11.6 and hematocrit 35.1. Neutrophils 58.1. She was found to have a slightly low sodium with an elevated potassium of 5.2, chloride 98, BUN 36, creatinine 1.44. Baseline creatinine is usually about 0.9 to 1. She also had a BNP of 744. Her chest x-ray showed no acute pneumonic process with cardiomegaly. Her lower extremity ultrasound showed no evidence of right lower extremity deep venous thrombosis. Because of her elevated potassium and her acute on chronic renal failure, I was called for admission. PAST MEDICAL HISTORY: 1. Hyperlipidemia. 2. Hypertension. PAST SURGICAL HISTORY: 1. Appendectomy. 2. Bilateral hip replacement. 3. Right knee replacement. 4. Recent revision of right hip. OUTPATIENT MEDICATIONS: Per the EMR and awaiting verification. ALLERGIES: SULFA. FAMILY HISTORY: Noncontributory. SOCIAL HISTORY: She is retired. She lives in [place]. There is no history of alcohol or tobacco usage. REVIEW OF SYSTEMS: GENERAL: Positive for fatigue. Negative for chills or fever. HEENT: Negative for sinus symptoms, ear pain, vision changes or sore throat. RESPIRATORY: Negative for wheezing, coughing or shortness of breath. CARDIAC: Negative for chest pain, palpitations or tachycardia. GASTROINTESTINAL: Negative for nausea, vomiting, diarrhea, constipation. GENITOURINARY: Negative for hematuria, dysuria or polyuria. NEUROLOGIC: Negative for headache, vision changes or seizures. PHYSICAL EXAMINATION: VITAL SIGNS: Afebrile. Heart rate 80. Blood pressure 155/66. Respiratory rate 20. O2 saturation 96% on room air. GENERAL: This is an 87-year-old female patient who is in no acute distress. HEENT: Normocephalic, atraumatic. Pupils are equal and reactive. Oropharynx is clear. NECK: Supple without mass. No jugular venous distention. RESPIRATORY: Essentially clear to auscultation bilaterally. There are no rales or crackles noted. CHEST: There is equal rise and fall of the chest with inspiration and expiration. CARDIOVASCULAR: Regular rate and rhythm. No murmurs, gallops, or rubs. GASTROINTESTINAL: Abdomen is soft, nondistended, nontender. Bowel sounds are positive. EXTREMITIES: No cyanosis, clubbing or edema. NEUROLOGIC: Awake, alert and oriented times three. Cranial nerves II-XII are grossly intact. LABORATORY: Labs and films are as per history of present illness. HOSPITAL COURSE: The patient was placed in observation overnight. She was given gentle IV fluids. Her labs were repeated this morning and her sodium was 136 with potassium 4.1, chloride 99. BUN improved to 29, creatinine 1.13. WBC 7.3, hemoglobin 11.4, hematocrit 35. Urine was within normal limits. Kidney function and potassium have improved greatly and she will be discharged back to [place] today. DISCHARGE PLAN: The patient will be discharged to [place] assisted living. She is to resume her previous home medications with the exception of her potassium which I will hold for now. She has a followup appointment with Dr. Rosado next week on 10/06/17 at 2:45 PM. Recommended to do a CMP at that appointment. She is to resume her previous activity as well as her home health services. She is to call Dr. Rosado's office or return to the hospital for any further problems or complications. DISCHARGE MEDICATIONS: 1. Metoprolol. 2. Amlodipine. 3. Calcium. 4. Tylenol PM. 5. Cyanocobalamin. 6. Magnesium oxide. 7. Donepezil. 8. Aspirin. 9. Tramadol. 10. Acetaminophen. 11. Pantoprazole. 12. Multivitamins. 13. [place]-3 fatty acids. 14. Duloxetine. 15. Clonidine. Dr. Miller is the collaborating physician and available for consultation. #[id number] [facility]
[2017-10-01] MEDS ORDERED: PANTOPRAZOLE SODIUM TAB 40 MG PO SCH (06:30)
== END 2017-09-30 11:30 ==
LOC: ER 20:50 → MS 23:26
PROVIDERS: ADMIT Nurse Practitioner Acute Care; ATTEND Nurse Practitioner Acute Care
DX: N17.9 Acute kidney failure, unspecified (principal); I12.9 Hypertensive chronic kidney disease with stage 1 through stage 4 chronic kidney disease, or unspecified chronic kidney disease; N18.9 Chronic kidney disease, unspecified; E87.5 Hyperkalemia; R79.89 Other specified abnormal findings of blood chemistry; R60.0 Localized edema; E86.0 Dehydration; E78.5 Hyperlipidemia, unspecified; Z79.82 Long term (current) use of aspirin; Z79.899 Other long term (current) drug therapy; Z88.2 Allergy status to sulfonamides; Z96.643 Presence of artificial hip joint, bilateral; Z96.651 Presence of right artificial knee joint
CPT/HCPCS: 36415 ×2; 71045; 80048; 80053; 81001; 83735; 83880; 85025 ×2; 93971; 94760 ×3; J7030

== ENCOUNTER → 2018-05-16 | Outpatient (CLI) | payer MEDICARE | LOC: YCHH 10:25 | PROVIDERS: ATTEND Family Medicine | DX: I48.91 Unspecified atrial fibrillation (principal); E78.5 Hyperlipidemia, unspecified; D64.9 Anemia, unspecified; E05.90 Thyrotoxicosis, unspecified without thyrotoxic crisis or storm ==

== ENCOUNTER 2018-06-23 14:40 | Emergency (ER) | payer MEDICARE ==
[2018-06-23] MEDS ORDERED: ONDANSETRON INJ 4 MG/2 ML VIAL IV ONE (15:03)
[2018-06-23] MEDS ORDERED: SODIUM CHLORIDE 0.9% 500ML 500 ML IVS ONE (15:03)
--- NOTE | 2018-06-23 15:06 | ED.PDOC ---
History of Present Illness - General Chief Complaint: GI Problem Stated Complaint: n/v/d Time Seen by Provider: 06/23/18 14:58 Information Source: patient, family Exam Limitations: no limitations - History of Present Illness Initial Comments: vomiting started last pm. Abdominal Pain Onset Location: generalized abdomen Pain Radiation: no radiation Quality: moderate Timing/Duration: 7-24 hours Improving Factors: nothing Worsening Factors: nothing Associated Symptoms: nausea/vomiting Review of Systems - Review of Systems Constitutional: Denies: chills, fever EENTM: States: no symptoms reported Respiratory: Denies: cough, short of breath Cardiology: Denies: chest pain Gastrointestinal/Abdominal: States: abdominal pain, diarrhea, nausea, vomiting Genitourinary: States: no symptoms reported Musculoskeletal: States: no symptoms reported Skin: States: no symptoms reported Neurological: States: no symptoms reported Endocrine: States: no symptoms reported Hematologic/Lymphatic: States: no symptoms reported Past Medical History (General) - Patient Medical History Hx Seizures: No Hx Stroke: No Hx Dementia: Yes Hx Asthma: No Hx of COPD: Yes Hx Cardiac Disorders: Yes - atrial fibrillation Hx Congestive Heart Failure: No Hx Pacemaker: No Hx Hypertension: Yes Hx Thyroid Disease: No Hx Diabetes: No Hx Gastroesophageal Reflux: No Hx Renal Disease: No Hx Cancer: No Hx of HIV: No Hx Hepatitis C: No Hx MRSA: No Surgical History: appendectomy, other - Vaccination History Hx Tetanus, Diphtheria Vaccination: Yes - 01/27/15 Hx Influenza Vaccination: No Hx Pneumococcal Vaccination: Yes - Social History Hx Tobacco Use: No Hx Chewing Tobacco Use: No Hx Alcohol Use: No Hx Substance Use: No Hx Substance Use Treatment: No Hx Depression: No Hx Physical Abuse: No Hx Emotional Abuse: No Hx Suspected Abuse: No - Activities of Daily Living Penitentiary[facility]Assisted Living (if applicable):: [facility] Family Medical History - Family History Mother Living Status: Hx Cardiac Disease: Yes Hx Family;Other: [place] Physical Exam - Physical Exam General Appearance: Alert, Obvious distress Eyes, Ears, Nose, Throat Exam: PERRL/EOMI, other - dry mucosa Neck: non-tender, full range of motion, supple Respiratory: no respiratory distress, rhonchi Cardiovascular/Chest: irregularly irregular Gastrointestinal/Abdominal: normal bowel sounds, soft, tenderness - diffusely without guarding Extremity: normal range of motion, normal inspection, no pedal edema Neurologic: normal mood/affect, oriented x 3 Skin Exam: normal color, warm/dry Lymphatic: no adenopathy Departure - Departure Clinical Impression: Vomiting Qualifiers: Vomiting type: unspecified Vomiting Intractability: non-intractable Nausea presence: with nausea Qualified Code(s): R11.2 - Nausea with vomiting, unspecified Disposition: Discharge to Home or Self Care Condition: Fair Departure Forms: ED Discharge - Pt. Copy, Patient Portal Self Enrollment Referrals: Nirav Rosado MD [Primary Care Provider] - 1-2 Weeks Prescriptions: Ondansetron [Zofran Odt] 4 mg PO Q4HR PRN #15 tab PRN Reason: Nausea Hyoscyamine Sulfate [Levsin/Sl] 0.125 mg SL Q6HR PRN #15 sub PRN Reason: Abdominal Cramping Home Medications: Ambulatory Orders Amlodipine Besylate [Norvasc] 10 mg PO DAILY 01/28/15 Metoprolol Succinate [Toprol Xl] 100 mg PO DAILY 01/28/15 Calcium 500 mg PO DAILY 03/23/17 Cyanocobalamin [Vitamin B-12] 1,000 mcg PO DAILY 03/23/17 Diphenhydramine-Acetaminophen [Tylenol Pm Extra Strength 500-25 mg] 1 - 2 tab PO BEDTIME PRN 03/23/17 Magnesium Oxide 400 mg PO BID #30 cap 03/28/17 Acetaminophen [Tylenol] 500 mg PO BEDTIME 08/09/17 Aspirin [Aspirin Adult Low Dose] 81 mg PO DAILY 08/09/17 Donepezil Hydrochloride [Aricept] 10 mg PO BEDTIME 08/09/17 Tramadol HCl 50 mg PO BID 08/09/17 Tramadol HCl 50 mg PO Q6HR PRN 08/09/17 DULoxetine HCL [Cymbalta] 30 mg PO DAILY 09/30/17 Multiple Vitamins W/ Minerals [Multi For Her] 1 tablet PO DAILY 09/30/17 [place]-3 Fatty Acids [Fish Oil] 1,200 mg PO DAILY 09/30/17 Pantoprazole Tablet [Protonix] 40 mg PO DAILY 09/30/17 cloNIDine HCL [Catapres] 0.1 mg PO TID tab 09/30/17 Hyoscyamine Sulfate [Levsin/Sl] 0.125 mg SL Q6HR PRN #15 sub 06/23/18 Ondansetron [Zofran Odt] 4 mg PO Q4HR PRN #15 tab 06/23/18
[2018-06-23] MEDS ORDERED: KETOROLAC TROMETHAMINE INJ 30 MG/ML VIAL IV ONE (15:30)
--- NOTE | 2018-06-23 15:30 | RAD ---
EXAM DESCRIPTION: Chest,1 View CLINICAL HISTORY: 88 years Female, vomiting COMPARISON: September 29, 2017 TECHNIQUE: AP portable chest. FINDINGS: Single view of the chest demonstrates a calcified tortuous aortic arch and modest cardiomegaly with upper normal vascularity. I question whether there is tiny amount of patchy infiltrate or atelectasis lateral left cardiac margin in the left lower lung field. Right lung is essentially clear. An old healed right posterior rib fracture is again noted. Mid and upper lung [place] are clear. IMPRESSION: Cardiomegaly with tortuous aorta and upper normal vascularity. There is questionable minimal patchy infiltrate or atelectasis at the lateral left lower lung field. Electronically signed by: Alvino Guerrero MD 06/23/2018 3:29 PM [facility]
[2018-06-23 17:23] VITALS: BP 142/101; TEMP 99.1; O2SAT 96
== END 2018-06-23 17:12 | disposition home or self-care (01) ==
LOC: ER 14:40
DX: R11.2 Nausea with vomiting, unspecified (principal); R19.7 Diarrhea, unspecified; F03.90 Unspecified dementia, unspecified severity, without behavioral disturbance, psychotic disturbance, mood disturbance, and anxiety; J44.9 Chronic obstructive pulmonary disease, unspecified; I48.91 Unspecified atrial fibrillation; I10 Essential (primary) hypertension
CPT/HCPCS: 36415; 71045; 80053; 83690; 85025; J1885; J2405; J7040

== ENCOUNTER 2018-08-13 09:14 | Observation (INO) | payer MEDICARE ==
[~2018-08-13 09:14] MED LIST: MORPHINE SULFATE INJ 10 MG/ML VIAL IV ONE
[2018-08-13] MEDS ORDERED: MORPHINE SULFATE INJ 10 MG/ML VIAL ONE (09:23)
--- NOTE | 2018-08-13 09:33 | ED.PDOC ---
History of Present Illness - General Chief Complaint: Trauma Time Seen by Provider: 08/13/18 09:26 Source: patient, EMS, retirement records Exam Limitations: clinical condition - History of Present Illness Initial Comments: Patient presents from the retirement after an unwitnessed fall last night. She complains of pain in the right lower leg, right upper arm, and mid back. She does not remember how she fell or if she hit her head. There is a skin tear on the right lower leg. The patient takes ASA 81 mg po qd for history of atrial fibrillation. Patient has history of dementia. No other history is available at this time. Timing/Duration: other - 12 hours Severity: moderate Improving Factors: movement Worsening Factors: rest Associated Symptoms: other - as in HPI Allergies/Adverse Reactions: Allergies Sulfa Antibiotics Allergy (Verified 09/29/17 21:23) Home Medications: Ambulatory Orders Amlodipine Besylate [Norvasc] 5 mg PO DAILY 01/28/15 Cyanocobalamin [Vitamin B-12] 1,000 mcg PO DAILY 03/23/17 Diphenhydramine-Acetaminophen [Tylenol Pm Extra Strength 500-25 mg] 1 - 2 tab PO BEDTIME PRN 03/23/17 Magnesium Oxide 400 mg PO BID #30 cap 03/28/17 Aspirin [Aspirin Adult Low Dose] 81 mg PO DAILY 08/09/17 Tramadol HCl 50 mg PO Q6HR PRN 08/09/17 Pantoprazole Tablet [Protonix] 40 mg PO DAILY 09/30/17 Hyoscyamine Sulfate [Levsin/Sl] 0.125 mg SL Q6HR PRN #15 sub 06/23/18 Memantine HCl-Donepezil HCl [Namzaric 28-10 mg] 1 cap PO DAILY 06/24/18 Polyethylene Glycol 3350 [Miralax] 17 gm PO VALE-OTH-DAY 06/24/18 cloNIDine HCL [Catapres] 0.1 mg PO BID 06/24/18 Acetaminophen W/ Codeine [Acetaminophen/Codeine #3 300-30 mg] 1 tab PO BID 08/13/18 Calcium Carbonate-Cholecalcife [Calcium 500 +D3 500-600 mg-Unit] 1 tab PO DAILY 08/13/18 Metoprolol Succinate [Metoprolol Succinate ER] 150 mg PO DAILY 08/13/18 Review of Systems - Review of Systems Unable to Obtain Due To: dementia Past Medical History (General) - Patient Medical History Hx Seizures: No Hx Stroke: No Hx Dementia: Yes Hx Asthma: No Hx of COPD: Yes Hx Cardiac Disorders: Yes - atrial fibrillation Hx Congestive Heart Failure: No Hx Pacemaker: No Hx Hypertension: Yes Hx Thyroid Disease: No Hx Diabetes: No Hx Gastroesophageal Reflux: No Hx Renal Disease: No Hx Cancer: No Hx of HIV: No Hx Hepatitis C: No Hx MRSA: No - Vaccination History Hx Tetanus, Diphtheria Vaccination: Yes - 01/27/15 Hx Influenza Vaccination: No Hx Pneumococcal Vaccination: Yes - Social History Hx Tobacco Use: No Hx Chewing Tobacco Use: No Hx Alcohol Use: No Hx Substance Use: No Hx Substance Use Treatment: No Hx Depression: No Hx Physical Abuse: No Hx Emotional Abuse: No Hx Suspected Abuse: No Family Medical History - Family History Mother Living Status: Hx Cardiac Disease: Yes Hx Family;Other: [place] Physical Exam - Physical Exam General Appearance: Obvious distress - Moderate Eye Exam: bilateral normal Ears, Nose, Throat: normal ENT inspection Neck: non-tender, full range of motion, supple Respiratory: lungs clear, normal breath sounds Cardiovascular/Chest: irregularly irregular, other - TTP over right anterolateral 4-7th ribs with overlying erythema Gastrointestinal/Abdominal: normal bowel sounds, non tender Back Exam: other - TTP over T7 and L2. No visible contusions. Extremity: normal range of motion, non-tender, other - skin tear on anterolateral right lower leg. Neurologic: psych therapist II-XII nml as tested, no motor/sensory deficits, alert, normal mood/affect - GCS 15 Skin Exam: other - Skin tear on right anterolateral lower leg. contusion on right anterior chest. Progress - Progress Progress: 08/13/18 13:46 Radiographs of the ribs showed displaced fractures of the anterolateral 4-6th ribs with underlying soft tissue gas. No pneumothorax. There was also a non- displaced fracture of the spinous process of L2. The patient was given Morphine 2 mg IV x one upon arrival and her pain improved. She was admittd for pain control, incentive spirometry, ambulatory insufficiency, and PT consult. I spoke with the patient and one of her sons who voiced understanding and agreement with the plan. Departure - Departure Clinical Impression: Fracture of multiple ribs, Lumbar vertebral fracture Disposition: Admit Patient Condition: Fair Departure Forms: ED Discharge - Pt. Copy, Patient Portal Self Enrollment Referrals: Nirav Rosado MD [Primary Care Provider] - 1-2 Weeks Home Medications: Ambulatory Orders Amlodipine Besylate [Norvasc] 5 mg PO DAILY 01/28/15 Cyanocobalamin [Vitamin B-12] 1,000 mcg PO DAILY 03/23/17 Diphenhydramine-Acetaminophen [Tylenol Pm Extra Strength 500-25 mg] 1 - 2 tab PO BEDTIME PRN 03/23/17 Magnesium Oxide 400 mg PO BID #30 cap 03/28/17 Aspirin [Aspirin Adult Low Dose] 81 mg PO DAILY 08/09/17 Tramadol HCl 50 mg PO Q6HR PRN 08/09/17 Pantoprazole Tablet [Protonix] 40 mg PO DAILY 09/30/17 Hyoscyamine Sulfate [Levsin/Sl] 0.125 mg SL Q6HR PRN #15 sub 06/23/18 Memantine HCl-Donepezil HCl [Namzaric 28-10 mg] 1 cap PO DAILY 06/24/18 Polyethylene Glycol 3350 [Miralax] 17 gm PO VALE-OTH-DAY 06/24/18 cloNIDine HCL [Catapres] 0.1 mg PO BID 06/24/18 Acetaminophen W/ Codeine [Acetaminophen/Codeine #3 300-30 mg] 1 tab PO BID 08/13/18 Calcium Carbonate-Cholecalcife [Calcium 500 +D3 500-600 mg-Unit] 1 tab PO DAILY 08/13/18 Metoprolol Succinate [Metoprolol Succinate ER] 150 mg PO DAILY 08/13/18
--- NOTE | 2018-08-13 10:29 | RAD ---
CLINICAL HISTORY: 88 years Female fall with pain COMPARISON: None TECHNIQUE: AP, lateral and oblique views of the [] foot are obtained. FINDINGS: OSSEOUS: There is no evidence of acute fracture or osteolytic/osteoblastic lesions. There is no evidence of subluxation or dislocation. There are hammertoe deformities involving the second through fifth digit The joint spaces are preserved. Mild marginal osteophytosis is noted in the first MTP joint consistent with primary osteoarthritis. There is no evidence of marginal erosive changes to suggest an inflammatory arthritis. The ankle mortise is symmetric with a smooth talar dome and no evidence of widening of the distal tibiofibular syndesmosis. There is a moderate noninflamed Achilles calcaneal enthesophyte. SOFT TISSUES: There is no significant soft tissue swelling or mass. No evidence of significant soft tissue calcifications. No radiopaque foreign bodies. There is no evidence of an ankle joint effusion. IMPRESSION: No acute osseous abnormality. Remainder of findings as described above. Electronically signed by: Caitlin Iraheta MD 08/13/2018 10:26 AM [facility]
--- NOTE | 2018-08-13 10:31 | RAD ---
EXAM DESCRIPTION: Humerus,Right CLINICAL HISTORY: 88 years Female fall with pain and hematoma COMPARISON: None TECHNIQUE: AP and lateral views of the right humerus are obtained. FINDINGS: OSSEOUS: There is no evidence of acute fracture or osteolytic/osteoblastic lesions. There is no evidence of subluxation or dislocation. The joint spaces are preserved. There is no evidence of degenerative osteophytosis or sclerosis. There is no evidence of marginal erosive changes to suggest an inflammatory arthritis. SOFT TISSUE: There is no significant soft tissue swelling or mass. No evidence of significant soft tissue calcifications. No radiopaque foreign bodies. IMPRESSION: No acute osseous abnormalities. Electronically signed by: Caitlin Iraheta MD 08/13/2018 10:28 AM [facility]
--- NOTE | 2018-08-13 11:19 | CT ---
EXAM DESCRIPTION: CT CERVICAL SPINE CLINICAL HISTORY: fall COMPARISON: None Available. TECHNIQUE: Contiguous axial images of the cervical spine were obtained followed by reconstruction images.This exam was performed according to our departmental dose-optimization program, which includes automated exposure control, adjustment of the mA and/or kV according to patient size and/or use of iterative reconstruction technique. FINDINGS: There are mildly enlarged mediastinal lymph nodes. Bony degenerative changes are present. There is atelectasis and scar at the pulmonary apices. There is chronic appearing focal kyphosis in the mid cervical spine, likely degenerative. There is grade 1 anterolisthesis of C4 on C5. There is no acute fracture or subluxation. The prevertebral soft tissues are within normal limits. IMPRESSION: No acute fracture or subluxation. Electronically signed by: Olman Arteaga 08/13/2018 11:16 AM [facility]
--- NOTE | 2018-08-13 11:21 | CT ---
EXAM DESCRIPTION: Head CLINICAL HISTORY: 88 years Female fall COMPARISON: November 11, 2015. TECHNIQUE: Noncontrast axial scans of the brain were obtained. Sagittal and coronal reformatted images were performed. This exam was performed according to our departmental dose-optimization program, which includes automated exposure control, adjustment of the mA and/or kV according to patient size and/or use of iterative reconstruction technique. FINDINGS: There is no evidence of acute intracranial hemorrhage, extracerebral fluid collection, significant hydrocephalus, midline shift, obvious mass effect, or major territorial infarction. Ventricular size is in keeping with the patient's age. There is slight prominence of cortical sulci, especially in the upper convexity. Minimal periventricular hypoattenuation is noted, consistent with small vessel disease. There are vascular calcifications at the base of the brain. The bony calvarium appears intact. Visualized paranasal sinuses and mastoid air cells appear clear. The right frontal sinus is hypoplastic. There appears to be some degenerative change at the temporomandibular joints. IMPRESSION: No evidence of acute intracranial hemorrhage. Age-related changes. Electronically signed by: Jesse Arenas MD 08/13/2018 11:18 AM [facility]
--- NOTE | 2018-08-13 11:24 | CT ---
EXAM DESCRIPTION: Thoracic Spine CLINICAL HISTORY: 88 years Female fall with TTP over T7 COMPARISON: None. TECHNIQUE: Contiguous axial CT images obtained through the thoracic spine without IV contrast. Reformatted images obtained. This exam was performed according to our department optimization program which includes automated exposure control, adjustment of the mA and/or kv according to patient size and/or use of iterative reconstruction technique. All CT scanners at this facility use dose modulation, iterative reconstruction, and/or weight based dosing when appropriate to reduce radiation dose to as low as reasonably achievable (ALARA). FINDINGS: There is an exophytic cystic lesion of the left kidney. Detail is limited without contrast. There are mildly enlarged mediastinal lymph nodes. Left thyroid lobe hypoattenuating nodule measures 17 mm diameter. There is a chronic appearing right eighth rib fracture. No acute fracture of the thoracic spine is seen. IMPRESSION:1.7 cm incidental thyroid nodule Recommend thyroid US if clinically warranted given patient age. Reference: J Am Lo Radiol. 2015 b;12(2): 143-50 Degenerative changes. No acute bony abnormality identified. Electronically signed by: Olman Arteaga 08/13/2018 11:21 AM [facility]
--- NOTE | 2018-08-13 11:25 | RAD ---
EXAM DESCRIPTION: Tibia/Fibula,Right CLINICAL HISTORY: fall with hematoma and pain COMPARISON: None FINDINGS: 2 view(s) submitted. Knee prosthesis appears intact. No fracture or dislocation is identified. Bone marrow attenuation is unremarkable. No radiopaque foreign body is identified. IMPRESSION: No acute fracture or dislocation. Electronically signed by: Olman Arteaga 08/13/2018 11:22 AM [employer]
--- NOTE | 2018-08-13 11:39 | CT ---
EXAM DESCRIPTION: Abdoment/Pelvis w/o Contrast CLINICAL HISTORY: fall with hip pain bilaterally COMPARISON: None Available. TECHNIQUE: Contiguous axial images of the abdomen and pelvis were obtained followed by reconstruction images. This exam was performed according to our departmental dose-optimization program, which includes automated exposure control, adjustment of the mA and/or kV according to patient size and/or use of iterative reconstruction technique. FINDINGS: There is a probable nondisplaced fracture of the L2 spinous process, best seen on sagittal reconstruction image 107. Best seen on axial image 102 and coronal image 63, there is a nonspecific cystic lesion measuring 22 mm adjacent to loops of bowel in the lower abdomen just right of midline. This is not clearly associated with the right adnexa. Low-attenuation lesion of the bowel is possible. There is no evidence of bowel obstruction or local bowel wall thickening in this region or significant surrounding soft tissue stranding of the mesenteric fat. Lateral to the right hip, there is a fluid collection with limited detail because of significant streak artifact, incompletely imaged. It measures approximately 62 mm transverse by 80 mm AP and could be a seroma or other complex fluid collection. Its density is lower than expected for acute hematoma however, at the median 14 Hounsfield units density. . There is a nonspecific hyperattenuating lesion of the right anterior kidney measuring approximately 1 cm. Detail is limited without IV contrast. Exophytic lesion of the left kidney is also nonspecific. There is mild cardiomegaly. The heart is not fully imaged. A few calcified gallstones are present. The gallbladder is distended with no definite pericholecystic fluid or gallbladder wall thickening. There is significant streak artifact from bilateral hip prostheses. There is colonic diverticulosis. No evidence of appendicitis. There are bony degenerative changes. There is grade 2 anterolisthesis of L5 on S1 with severe disc height loss and bilateral L5 pars defects. The liver, spleen, pancreas and kidneys are within normal limits. There is no hydronephrosis or renal stones. The gallbladder is unremarkable by CT criteria. Adrenal glands are within normal limits. Aorta is of normal caliber and tapering. No other acute fracture or dislocation is seen. IMPRESSION: Probable fracture of the spinous process of L2. Clinical correlation with site of focal pain will be helpful. Nonspecific fluid collection lateral to the right hip, incompletely imaged. No other acute abnormality. Extensive bone degenerative changes. Bilateral prosthetic hips. No definite acute abnormality of the prosthetic hips although detail is limited. See additional findings above. Electronically signed by: Olman Arteaga 08/13/2018 11:36 AM [facility]
--- NOTE | 2018-08-13 13:28 | RAD ---
EXAM DESCRIPTION: Bilateral Ribs CLINICAL HISTORY: 88 years Female tender after fall with right sided contusion COMPARISON: None. FINDINGS: There are changes of COPD with areas of scarring and atelectasis in the lungs. No pneumothorax is identified. There are atherosclerotic calcifications in the thoracic aorta. There are acute appearing displaced fractures involving the lateral right fourth, fifth and seventh ribs. Small amount of gas is visualized in the adjacent soft tissues. There is an old appearing fracture involving the right sixth rib. No definite left rib sided fractures. IMPRESSION: There are acute appearing displaced fractures involving the lateral right fourth, fifth and seventh ribs. There is a small amount of gas in the soft tissues adjacent to the fractures. No definite pneumothorax is identified. Electronically signed by: Dwaine Gama MD 08/13/2018 1:25 PM [facility]
[2018-08-13] MEDS ORDERED: MORPHINE SULFATE INJ 10 MG/ML VIAL IV ONE (13:59)
[2018-08-13] MEDS ORDERED: LEVALBUTEROL NEBS 1.25 MG/3 ML VIAL NEB PRN (14:31)
[2018-08-13] MEDS ORDERED: MORPHINE SULFATE INJ 10 MG/ML VIAL IV PRN (14:31)
[2018-08-13] MEDS ORDERED: ONDANSETRON INJ 4 MG/2 ML VIAL IV PRN (14:31)
[2018-08-13] MEDS ORDERED: ACETAMINOPHEN 325 MG TAB PO PRN (14:31)
--- NOTE | 2018-08-13 14:31 | HP ---
SUPERVISING PHYSICIAN: Charles Sweeney MD CHIEF COMPLAINT: Trauma. HISTORY OF PRESENT ILLNESS: This is an 88-year-old female patient who is a resident of [facility]. Sometime last night she sustained a fall from her bed. She states she "slid out of bed" and she fell on her right side. She complained of pain in her bilateral lower legs as well as her right arm, her right side and right midback. She does not remember how she fell or if she hit her head. She had a fairly extensive skin tear on her right lower leg that required multiple Steri-strips. She has an ecchymotic area on her left lower leg as well as bruising in several areas on the right side of her body. She does have a history of dementia and her son is not quite sure exactly what happened either, but an ambulance had been called to [facility] to bring her to the Emergency Room. In the Emergency Room, her initial vital signs showed a temperature of 95.8 with a heart rate of 65, blood pressure 69/70, respiratory rate 18, 02 saturation 94% on room air. They reported that she dropped down to 85% when they attempted to take her oxygen off but after putting her 02 back on, her saturations came up to the mid 90s. She had some labs drawn and her CBC was unremarkable. Her PT and PTT were within normal limits. Her chemistries showed a slightly low sodium of 134, chloride 96, BUN 29, creatinine 1.16, blood sugar 110, serum osmolality of 274.7. A urine was also ordered which has not been collected. Extensive CT scan and x-rays were done. Her rib x-ray showed acute appearing displaced fractures involving the lateral right 4th, 5th and 7th ribs. There is a small amount of gas and soft tissue adjacent to the fracture. No definite pneumothorax is identified. The right tibia/fibula x-ray showed no acute fracture or dislocation. Her right humerus x-ray showed no acute osseous abnormalities. Right foot x-ray shows no acute osseous abnormality. The thoracic spine CT showed a 1.7 cm incidental thyroid nodule, recommend thyroid ultrasound if clinically warranted given the patient's age. Also, degenerative changes and no acute bony abnormality is identified. Abdomen and pelvis CT shows probable fracture of the spinous process of L2, clinical correlation with site of focal pain will be helpful. Nonspecific fluid collection lateral to the right hip incompletely imaged. No other acute abnormality. Extensive bone degenerative changes, bilateral prosthetic hips. No definite acute abnormality of the prosthetic hips, although detail is limited. Her head CT shows no evidence of acute intracranial hemorrhage, age-related changes. Cervical spine CT showed no acute fracture or subluxation. She was given several doses of morphine, both in the ambulance and in the Emergency Room. I was called to admit the patient to observation so she could be referred to a rehabilitation facility and to get her pain under control. PAST MEDICAL HISTORY: 1. Hyperlipidemia. 2. Hypertension. 3. History of atrial fibrillation on 81 mg of aspirin. 4. Dementia. PAST SURGICAL HISTORY: 1. Appendectomy. 2. Bilateral hip replacement. 3. Right knee replacement. 4. Revision of right hip. OUTPATIENT MEDICATIONS: Per the EMR and awaiting verification. ALLERGIES: SULFA. FAMILY HISTORY: Noncontributory. SOCIAL HISTORY: She lives at [facility]. There is no history of ETOH or tobacco usage. REVIEW OF SYSTEMS: GENERAL: GENERAL: Negative for chills or fever or fatigue. HEENT: Negative for sinus symptoms, ear pain, vision changes or sore throat. RESPIRATORY: Positive for shortness of breath, negative for coughing or wheezing. CARDIAC: Negative for chest pain, palpitations or tachycardia. GASTROINTESTINAL: Negative for nausea, vomiting, diarrhea, constipation. GENITOURINARY: Negative for hematuria, dysuria or polyuria. NEUROLOGIC: Negative for headache, seizures or dizziness. MUSCULOSKELETAL: As per history of present illness. PHYSICAL EXAMINATION: VITAL SIGNS: Temperature 97.7. Heart rate 68. Blood pressure 164/65. Respiratory rate 18. O2 saturation 88% on room air. HEENT: Normocephalic, atraumatic. Pupils are equal and reactive. Oropharynx is clear. NECK: Supple without mass. RESPIRATORY: Essentially clear to auscultation bilaterally but she is very diminished at the bases. . CHEST: There is equal rise and fall of the chest with inspiration and expiration. CARDIOVASCULAR: Regular rate and rhythm. . GASTROINTESTINAL: Abdomen is soft, nondistended, nontender. Bowel sounds are positive. EXTREMITIES: She has multiple ecchymotic areas on her left lower leg as well as a large ecchymotic area on her right mariscal that has a large skin tear and has Steri-strips on it. NEUROLOGIC: Awake and alert. She answers some simple questions but she is in quite a bit of pain and is having difficulty communicating at times. MUSCULOSKELETAL: She is tender to palpation along the right side of her ribs. She has ecchymotic areas throughout the right side of her abdomen and right lower hip area. LABORATORY: Labs and films are as per history of present illness. IMPRESSION: 1. Traumatic same-level fall resulting in multiple contusions on her bilateral lower legs plus right-sided pain with displaced fractures involving the lateral 4th, 5th and 7th ribs as well as a possible fracture of the spiney process of L2. 2. Intractable pain secondary to #1. 3. 1.7 cm thyroid nodule. 4. History of atrial fibrillation on 81 mg of aspirin. 5. Dementia. 6. Hypertension. 7. Hyperlipidemia. PLAN: We will place the patient in observation. She will have incentive spirometry and we have encouraged good pulmonary hygiene so she does not get pneumonia. I have given her some morphine but will put her on [place] 5/325 and will adjust the dosage as needed. I will restart her home medications as soon as they have been verified. I have ordered physical therapy for an evaluation so she can be transferred to a rehabilitation facility in the next day or two as well as Social Work consultation to assist with placement in a rehabilitation facility. I have also repeated a chest x-ray in the morning as we will need to monitor complications that include a pneumothorax. Dr. Warner may be needed for a consultation at some point. I have ordered routine labs as well as a PPI for ulcer prophylaxis. I have ordered Lovenox for DVT prophylaxis but it will not start until in the morning. We can watch for any signs of bleeding. We will continue to monitor closely and follow as needed. #[id number] [facility]
[2018-08-13] MEDS ORDERED: NON-FORMULARY MEDICATION 1 EA MIS (Diphenhydramine-Acetaminophen [Tylenol Pm Extra Strengt PO PRN (14:38)
[2018-08-13] MEDS ORDERED: IV SET AND CAP CHANGE INJ INJ SCH (15:00)
[2018-08-13] MEDS ORDERED: HYOSCYAMINE SULFATE 0.125 MG TAB PO PRN (15:00)
[2018-08-13] MEDS: HYDROcodone 5MG/APAP 325MG 1 EA TAB PO PRN ×2 (15:08→17:38)
[2018-08-13] MEDS: PANTOPRAZOLE SODIUM IV 40 MG VIAL IV SCH (15:10)
--- NOTE | 2018-08-13 16:53 | RAD ---
EXAM: PA and LATERAL CHEST RADIOGRAPHS CLINICAL INDICATION: Pain. Pneumonia? COMPARISON: Compared to today's rib series radiographs. FINDINGS: Cardiac size and pulmonary vasculature are normal. Aortic arch atherosclerotic calcification and probable mitral valve annular calcification. Left basilar consolidation probably in the left lower lobe. The hyperexpanded lungs are otherwise clear. No pleural effusions, pneumothorax or free peritoneal gas. No suspicious hilar or mediastinal lymphadenopathy. Bones are intact on these two views. IMPRESSION: Suspect left lower lobe pneumonia. Otherwise, normal for age chest radiographs. Electronically signed by: Rm Kumar MD 08/13/2018 4:49 PM [employer]
--- NOTE | 2018-08-13 19:43 | CONS ---
DATE OF CONSULTATION: 08/13/18 HISTORY OF PRESENT ILLNESS: The patient is an 88 year-old female who was admitted early this morning through the Emergency Room after a fall at her apartment at [facility]. The patient has known dementia and is uncertain of how the fall occurred or whether she hit her head. She was worked up extensively in the Emergency Room with radiologic studies and these revealed some acute rib fractures, a possible lumbar spinous process fracture, fluid next to her right hip, surgical revision but no acute injuries in the abdomen, neck or head. PAST MEDICAL HISTORY: 1. Hyperlipidemia. 2. Hypertension. 3. Atrial fibrillation. PAST SURGICAL HISTORY: 1. Appendectomy. 2. Bilateral hip replacement. 3. Right knee replacement. 4. Revision of her right hip after multiple dislocations. CURRENT MEDICATIONS: Listed on the record. ALLERGIES: SULFA. 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 There is no history of alcohol abuse. REVIEW OF SYSTEMS: Unremarkable as she does have dementia and she is seen without her family. PHYSICAL EXAMINATION: VITAL SIGNS: Currently pulse rate in the upper 90s, respiratory rate 16. Last blood pressure 164/77, pulse oximetry 77. She is afebrile. GENERAL: She is awake, alert and thought that she remembered my name, but did not remember me. HEENT: Sclera are nonicteric. Mucous membranes are moist. NECK: Without tenderness. She was extensively tender along the right side of her back and flank. CHEST: She had equal breath sounds bilaterally without wheezing. There was some decreased respiratory effort, however. ABDOMEN: Soft and benign as well as could be told with her cooperation. EXTREMITIES: Revealed multiple ecchymoses on the right and left lower legs and the right arm. The incision over the right hip there is a fluctuant mass which was seen on the CT scan and it is not consistent with an acute hematoma based on the density on x-ray. There is no obvious crepitance noted over the right ribs. LABORATORY: White count 7.9, hemoglobin 13.7, 183,000 platelets and normal differential. Coags showed PT of 10.4 with INR of 1.04, PTT of 25. Chemistries revealed creatinine 1.16, potassium 3.8, sodium 134, chloride 96. LFTs were within normal limits. The x-rays were reviewed in the History of Present Illness. IMPRESSION: 1. Multiple rib fractures, contusions and a skin tear from a fall at home at [facility]. PLAN: Chest x-ray this evening does reveal the possibility of an early left lower lobe pneumonia. This will be followed carefully. We will continue to control her pain as much as possible and have respiratory toilet. If in fact she worsens, aggressive treatment would possibly require rib blocks, ACU care. I have talked to her son, Silas. He will contact the other 2 sons and discuss with an 88 year-old with dementia whether aggressive care would be warranted or wished for, and we will discuss this later tomorrow based on the morning x-ray. #[id number] [facility]
[2018-08-13] MEDS ORDERED: diphenhydrAMINE HCL 25 MG CAP PO PRN (21:00)
[2018-08-13] MEDS ORDERED: ACETAMINOPHEN 500 MG TAB PO PRN (21:00)
[2018-08-13] MEDS: cloNIDine HCL 0.1 MG TAB PO SCH (21:53)
[2018-08-13] MEDS: MAGNESIUM OXIDE 400 MG TAB PO SCH (21:53)
[2018-08-14] MEDS ORDERED: HYDROcodone 7.5MG/APAP 325MG 1 EA TAB PO ONE (00:36)
[2018-08-14] MEDS ORDERED: HYDROcodone 7.5MG/APAP 325MG 1 EA TAB PO PRN (05:10)
[2018-08-14] MEDS: PANTOPRAZOLE SODIUM IV 40 MG VIAL IV SCH (06:33)
[2018-08-14] MEDS: SODIUM CHLORIDE 0.9% (FLUSH) 10 ML SYG IV PRN ×2 (06:34→20:21)
[2018-08-14] MEDS: HYDROcodone 7.5MG/APAP 325MG 1 EA TAB PO PRN ×3 (07:04→20:20)
--- NOTE | 2018-08-14 07:52 | RAD ---
EXAM DESCRIPTION: Chest,2 Views CLINICAL HISTORY: pneumo? Chest pain, shortness of breath COMPARISON: June 12, 2019 FINDINGS: Two-view chest x-ray shows enlargement of the cardiac silhouette without pulmonary vascular congestion. Calcifications of the mitral valve annulus are again seen with calcified plaque of the thoracic aortic arch. Lungs are hyperinflated. Chronic interstitial thickening in the lung apices right greater than left with apical pleural thickening is stable from previous. Probable pleural thickening along the left lower lateral chest is again seen. Mild chronic appearing increased interstitial markings in the lungs are seen without acute appearing infiltrate or consolidation. Mild disc degenerative changes of the spine are seen. IMPRESSION: No radiographic evidence of acute cardiopulmonary disease in this emphysematous, senescent chest. Stable chronic changes are noted.. Electronically signed by: Jun Henry MD 08/14/2018 7:49 AM [employer]
[2018-08-14] MEDS: NON-FORMULARY MEDICATION 1 EA MIS (Memantine Hcl-Donepezil Hcl [Namzaric 28-10 Mg] 1 CAP) PO SCH (08:01)
[2018-08-14] MEDS: ENOXAPARIN SODIUM 40 MG/0.4 ML SYG SUBCU SCH (08:10)
[2018-08-14] MEDS: ASPIRIN (CHEWABLE) 81 MG TAB PO SCH (08:11)
[2018-08-14] MEDS: MAGNESIUM OXIDE 400 MG TAB PO SCH ×2 (08:11→20:21)
[2018-08-14] MEDS: cloNIDine HCL 0.1 MG TAB PO SCH ×2 (08:11→20:21)
[2018-08-14] MEDS: amLODIPine BESYLATE 5 MG TAB PO SCH (08:12)
[2018-08-14] MEDS: METOPROLOL SUCCINATE XL 50 MG TAB PO SCH (08:12)
[2018-08-14] MEDS ORDERED: ALPRAZolam 0.25 MG TAB PO PRN (09:50)
--- NOTE | 2018-08-14 15:21 | PN ---
SUPERVISING PHYSICIAN: Herbert Soler MD DATE: 08/14/18 SUBJECTIVE: The patient is slowly being weaned off of IV pain management. She has been a little anxious and we will try some Ativan. Family is still working to get her placed in a long-term care rehab facility or SNF setting in the [place] area. She is encouraged to continue with deep breathing exercises for the pneumonia. She still does not have much recall of what happened in the last several days. OBJECTIVE: VITAL SIGNS: Temperature 98.7. Pulse 86. Blood pressure 153/60. Respirations 18. Saturation 95% on room air. Weight 52.1 kg. GENERAL: The patient appears to be comfortable in no acute distress. CHEST: Lung sounds fairly clear throughout, but diminished towards the both bases. No rhonchi, wheezing or rales. HEART: Regular rate and rhythm. ABDOMEN: Soft, nontender. Positive bowel sounds. EXTREMITIES: Ecchymotic areas to the lower extremities, but no new areas of trauma. NEUROLOGIC: Alert to herself, but not to location, time or place. LABORATORY: White count 8,000, hemoglobin 13.6, hematocrit 41.9, platelet count 166,000. Differential without a left shift. Chemistries show persistent hyponatremia at 134, potassium 3.7, BUN 25, creatinine 1.14, glucose 95. Liver functions all within normal limits. MICROBIOLOGY: No specimens submitted. RADIOLOGY: Chest x-ray this morning, single-view, per radiologic interpretation showed no radiographic evidence of acute cardiopulmonary disease in this emphysematous, senescent chest, stable chronic changes noted. ASSESSMENT: 1. Same-level fall, traumatic, with multiple contusions to bilateral lower extremities plus right-sided pain with displaced fractures involving the lateral 4th, 5th and 7th ribs as well as a nondisplaced spinous process fracture at L2. 2. Intractable pain secondary to #1. 3. 1.7 cm thyroid nodule. 4. History of atrial fibrillation on 81 mg of aspirin. 5. Dementia. 6. Hypertension. 7. Hyperlipidemia. PLAN: We will continue to treat the patient as needed. Awaiting placement in a long-term care SNF environment. She is encouraged to utilize incentive spirometry and continue with aggressive pulmonary hygiene to prevent any complications. We will await final word on placement in a long-term care versus SNF setting in [place]. Until then, we will continue to monitor and treat as needed. Dr. Warner continues to see the patient in followup for consultation and we will follow his recommendations as well. #[id number] [facility]
[2018-08-15] MEDS: PANTOPRAZOLE SODIUM IV 40 MG VIAL IV SCH (06:36)
[2018-08-15] MEDS: HYDROcodone 7.5MG/APAP 325MG 1 EA TAB PO PRN ×2 (06:36→12:39)
[2018-08-15] MEDS ORDERED: KETOROLAC TROMETHAMINE INJ 30 MG/ML VIAL IV PRN (07:45)
[2018-08-15] MEDS ORDERED: POLYETHYLENE GLYCOL 3350 17 GM PCKT PO SCH (09:00)
[2018-08-15] MEDS ORDERED: KETOROLAC TROMETHAMINE INJ 30 MG/ML VIAL ONE (09:19)
[2018-08-15] MEDS: MAGNESIUM OXIDE 400 MG TAB PO SCH (09:39)
[2018-08-15] MEDS: amLODIPine BESYLATE 5 MG TAB PO SCH (09:39)
[2018-08-15] MEDS: ENOXAPARIN SODIUM 40 MG/0.4 ML SYG SUBCU SCH (09:39)
[2018-08-15] MEDS: cloNIDine HCL 0.1 MG TAB PO SCH (09:39)
[2018-08-15] MEDS: ASPIRIN (CHEWABLE) 81 MG TAB PO SCH (09:39)
[2018-08-15] MEDS: NON-FORMULARY MEDICATION 1 EA MIS (Memantine Hcl-Donepezil Hcl [Namzaric 28-10 Mg] 1 CAP) PO SCH (09:40)
[2018-08-15] MEDS: METOPROLOL SUCCINATE XL 50 MG TAB PO SCH (09:40)
[2018-08-15] MEDS ORDERED: MAGNESIUM HYDROXIDE 30 ML UD PO SCH (11:30)
[2018-08-15] MEDS ORDERED: BISACODYL TAB 5 MG TAB PO SCH (11:30)
[2018-08-15 14:37] VITALS: BP 165/65; TEMP 98.5; O2SAT 98
[2018-08-16] MEDS ORDERED: ENOXAPARIN SODIUM 30 MG/0.3 ML SYG SUBCU SCH (09:00)
== END 2018-08-15 15:47 ==
LOC: ER 09:14 → MS 14:30
PROVIDERS: ADMIT Nurse Practitioner Acute Care; ATTEND Nurse Practitioner Family
DX: S22.41XA Multiple fractures of ribs, right side, initial encounter for closed fracture (principal); S81.811A Laceration without foreign body, right lower leg, initial encounter; S32.029A Unspecified fracture of second lumbar vertebra, initial encounter for closed fracture; S80.11XA Contusion of right lower leg, initial encounter; S80.12XA Contusion of left lower leg, initial encounter; G89.11 Acute pain due to trauma; E87.1 Hypo-osmolality and hyponatremia; M79.621 Pain in right upper arm; F03.90 Unspecified dementia, unspecified severity, without behavioral disturbance, psychotic disturbance, mood disturbance, and anxiety; E78.5 Hyperlipidemia, unspecified; I10 Essential (primary) hypertension; I48.91 Unspecified atrial fibrillation; M40.292 Other kyphosis, cervical region; E04.1 Nontoxic single thyroid nodule; W18.30XA Fall on same level, unspecified, initial encounter; Y92.122 Bedroom in nursing home as the place of occurrence of the external cause; Z96.643 Presence of artificial hip joint, bilateral; Z96.651 Presence of right artificial knee joint; Z79.82 Long term (current) use of aspirin; Z79.899 Other long term (current) drug therapy; Z88.2 Allergy status to sulfonamides
CPT/HCPCS: 96374; 96375 ×2; 96376 ×3; 96372 ×2; J1885; J2270 ×3; J1650 ×2; 80053 ×2; 36415 ×3; 81001; 85025 ×2; 83735; 85730; 85610; 71046 ×2; 71111; 73060; 73590; 73630; 70450; 72128; 72125; 74176; 94760 ×2; 97530; G8978; G8979; 97162; 99285; 93005